=== PATIENT | male | born 1975 | race African-American/Black ===

== ENCOUNTER 2019-04-13 08:44 | Inpatient (IN) | payer MEDICAID ==
[2019-04-13] VITALS (10 sets, daily range): BP systolic 94–159; BP diastolic 78–95
[~2019-04-13] VITALS: Ht 165.1 cm; Wt 125.6 kg
--- NOTE | 2019-04-13 09:44 | NUR ---
FSBS 246
--- NOTE | 2019-04-13 09:51 | NUR ---
TO CT WITH TECH, AWAKE, CONTIUES TO BE NON VERBAL STARING A BLANK STARE.
[2019-04-13 09:55] LABS: CALC OSMOLALITY 282 mosm/kg (275-300); CALCIUM 9.4 mg/dL (8.5-10.1); CHLORIDE - SERUM 96 mmol/L (98-107); CREATININE - SERUM 2.3 mg/dL (0.6-1.3); GLUCOSE 264 mg/dL (74-106); POTASSIUM - SERUM 4.9 mmol/L (3.5-5.1); SODIUM 137 mmol/L (136-145); UREA NITROGEN 13 mg/dL (7-18); eGFR NON AFRICAN AMERICAN 33 mL/min (90-120)
[2019-04-13 09:59] LABS: APTT 31.8 SECONDS (22.8-39.4); INR 0.96 (0.85-1.17); PROTIME 12.8 SECONDS (11.6-15.0)
[2019-04-13 10:08] LABS: ALBUMIN 3.8 g/dL (3.4-5.0); ALKALINE PHOSPHATASE 127 U/L (46-116); ALT (SGPT) 16 U/L (10-68); BILIRUBIN - TOTAL 0.52 mg/dL (0.2-1.3); CREATINE KINASE 110 UL (21-232); MAGNESIUM - SERUM 1.9 mg/dL (1.8-2.4); PROTEIN - SERUM 8.5 g/dL (6.4-8.2); THYROID STIMULATING HORMONE 0.43 uIU/mL (0.36-3.74); TROPONIN-I < 0.017 ng/mL (0.000-0.060)
[2019-04-13 10:22] LABS: BASOPHILS 0.3 % (0-2); EOSINOPHILS 0 % (0-7); HEMATOCRIT 62.9 % (42.0-54.0); HEMOGLOBIN 20.6 g/dL (13.5-17.5); IMMATURE GRANULOCYTES 0.5 % (0-5); LYMPHOCYTES 37.6 % (15-50); MCH 29.4 pg (26.0-34.0); MCHC 32.8 g/dL (31.0-37.0); MCV 89.9 fL (80.0-100.0); MEAN PLATELET VOLUME 9.6 fL (7.4-10.4); MONOCYTES 6.3 % (2-11); NEUTROPHILS 55.3 % (40-80); PLATELET COUNT 198 10x3/uL (130-400); RDW 15.8 % (11.5-14.5); WBC 3.8 10x3/uL (4.8-10.8)
--- NOTE | 2019-04-13 11:59 | NUR ---
PT PULLING AT LINES, PULLING OFF MONITORS, CONTINUES TO JUST STARE NON VERBAL, BILATERAL WRIST RESTRAINTS PLACED PER DR LESLIE JACK.
[2019-04-13 12:04] LABS: UDS - AMPHET NEGATIVE QUAL (NEGATIVE); UDS - BARB NEGATIVE QUAL (NEGATIVE); UDS - BENZO NEGATIVE QUAL (NEGATIVE); UDS - COCAINE NEGATIVE QUAL (NEGATIVE); UDS - OPIATE NEGATIVE QUAL (NEGATIVE); UDS - PCP NEGATIVE QUAL (NEGATIVE); UDS - THC NEGATIVE QUAL (NEGATIVE)
[2019-04-13 12:36] LABS: APPEARANCE HAZY (CLEAR); COLOR YELLOW (YELLOW); NITRITE NEGATIVE (NEGATIVE)
[2019-04-13 12:37] LABS: BACTERIA FEW /hpf (NEGATIVE); BILIRUBIN NEGATIVE (NEGATIVE); EPITHELIAL CELLS 0-5 /hpf (0-5); GLUCOSE 1000 mg/dL (NEGATIVE); KETONE LARGE mg/dL (NEGATIVE); PROTEIN 1+ mg/dL (NEGATIVE); RED CELLS - URINE 0-5 /hpf (0-5); UROBILINOGEN NORMAL (NORMAL); WHITE CELLS - URINE RARE /hpf (NEGATIVE)
[2019-04-13 12:38] LABS: MUCUS <1+ /lpf (NONE SEEN)
--- NOTE | 2019-04-13 13:10 | NUR ---
O2 SAT IN 80'S, 100% NON REBREATHER PLACED, O2 SAT UP TO 100%, RESP HERE DOING ABGS, DR NELSON AWARE, CON'T TO MONITOR.
--- NOTE | 2019-04-13 15:35 | NUR ---
PT ARRIVED TO ICU FROM ER. PATIENT PLACED ON BIPAP AT 50% VSS. PT KEEPS RIPPING OFF BIPAP EVEN WITH CIERRA WRIST RESTRAINTS INTACT. PRN ATIVAN GIVEN. WILL CONT TO FOLLOW POC
--- NOTE | 2019-04-13 16:00 | NUR ---
16 FR MOORE CATHETER INSERTED VIA STERILE TECHNIQUE. PT TOLERATED WELL, STAT LOCK IN PLACE. VSS AND WNL. BED ALARM ON. BIPAP ON. WILL CONT TO FOLLOW POC
--- NOTE | 2019-04-13 16:04 | NUR ---
patient combative non cooperative, unable to answer questions no family available to answer questions.
--- NOTE | 2019-04-13 18:23 | NUR ---
PT RESTING IN BED, VSS AND WNL. BIPAP IN PLACE. BED ALARM ON. WILL CONT TO FOLLOW POC
[2019-04-13 18:46] LABS: KETONE - SERUM SMALL mg/dL (NEGATIVE)
--- NOTE | 2019-04-13 19:00 | NUR ---
IN BED RESTING WITH EYES CLOSED. BIPAP ON PER ORDERS. IV TO RIGHT AC INFUSING VIA PUMP PER ORDERS. RESP ARE EVEN AND UNLABORED. RESTRAINTS STILL INITIATED. WILL NOTE ANY CHANGE. NO S/S OF ANY ACUTE DISTRESS AT THIS TIME.
--- NOTE | 2019-04-13 20:59 | NUR ---
ATTEMPTING TO SIT UP IN BED AND APPEARING AGITATED. EYES ARE OPEN BUT UNABLE TO RESPOND APPROPRIATELY TO VERBAL CUES. UNABLE TO FOLLOW DIRECTIONS. PULLING AGAINST RESTRAINTS. ATIVAN GIVEN PER ORDERS. WILL NOTE CHANGE.
--- NOTE | 2019-04-13 23:00 | NUR ---
RESTING COMFORTABLY AT THIS TIME. WRIST RESTRAINTS CONTINUED. FOLLOWING PROTOCOL AND PROCEDURE REGARDING. MOORE CARE PROVIDED. NO S/S OF ANY ACUTE DISTRESS NOTED. WILL NOTE ANY CHANGE.
--- NOTE | 2019-04-13 23:34 | NUR ---
THRASHING IN BED AT THIS TIME. SHOWS S/S OF AGITATION, UNABLE TO CALM OR REORIENT. UNABLE TO FOLLOW ANY COMMAND. EYES ARE SPONTANEOUSLY OPENING, BUT UNABLE TO TRACK THIS NURSE. NO VERBAL ATTEMPT MADE BY PT AT THIS TIME. ATIVAN GIVEN PER ORDERS.
[2019-04-14] VITALS (24 sets, daily range): BP systolic 89–155; BP diastolic 65–118; Ht 165.1 cm; Wt 125.6 kg
--- NOTE | 2019-04-14 01:00 | NUR ---
RESTING QUFLORENCETY AT THIS TIME. WILL NOTE CHANGE. VSS.
--- NOTE | 2019-04-14 02:04 | NUR ---
RESTLESS IN BED, ATTEMPTING TO THRASH ABOUT AND APPEARS TO BE TRYING TO SIT UP, UNABLE TO FOLLOW COMMANDS, DOES NOT APPROPRIATELY RESPOND TO VERBAL OR PHYSICAL PROMPTS, EYES ARE OPEN PUPIL ARE SLUGGISH TO REACT. UNABLE TO TRACK NURSE. ATIVAN GIVEN PER ORDERS TO HELP SETTLE AND REDIRECT PT.
--- NOTE | 2019-04-14 03:00 | NUR ---
RESTING QUIETLY AT THIS TIME. PREVIOUS MEDICINE DEEMED EFFECTIVE.
--- NOTE | 2019-04-14 05:00 | NUR ---
IN BED WITH NO S/S OF ANY ACUTE DISTRESS AT THIS TIME. VSS. RESTRAINTS CONTINUED. UNABLE TO MAKE NEEDS KNOWN, UNABLE TO COMMUNICATE AT THIS TIME. WILL CONTINUE TO OBSERVE.
[2019-04-14 05:03] LABS: BASOPHILS 0.2 % (0-2); EOSINOPHILS 0 % (0-7); HEMATOCRIT 57.2 % (42.0-54.0); HEMOGLOBIN 18.5 g/dL (13.5-17.5); IMMATURE GRANULOCYTES 0.5 % (0-5); LYMPHOCYTES 32.3 % (15-50); MCH 29.3 pg (26.0-34.0); MCHC 32.3 g/dL (31.0-37.0); MCV 90.6 fL (80.0-100.0); MEAN PLATELET VOLUME 8.6 fL (7.4-10.4); MONOCYTES 7.7 % (2-11); NEUTROPHILS 59.3 % (40-80); PLATELET COUNT 181 10x3/uL (130-400); RBC 6.31 10x6/uL (4.20-6.10); RDW 16.2 % (11.5-14.5); WBC 4.4 10x3/uL (4.8-10.8)
[2019-04-14 05:44] LABS: ALBUMIN 3.1 g/dL (3.4-5.0); BILIRUBIN - TOTAL 0.46 mg/dL (0.2-1.3); CALCIUM 8.7 mg/dL (8.5-10.1); CARBON DIOXIDE 18.6 mmol/L (21.0-32.0); CREATININE - SERUM 2.3 mg/dL (0.6-1.3); MAGNESIUM - SERUM 1.9 mg/dL (1.8-2.4); PHOSPHOROUS 2.7 mg/dL (2.5-4.9); POTASSIUM - SERUM 4.6 mmol/L (3.5-5.1); PROTEIN - SERUM 7.5 g/dL (6.4-8.2); T4 THYROXIN - FREE 1.12 ng/dL (0.76-1.46); THYROID STIMULATING HORMONE 0.33 uIU/mL (0.36-3.74)
--- NOTE | 2019-04-14 06:17 | NUR ---
S/S OF AGITATION. THRASHING IN BED. ATTEMPTING TO GRAB AT LINES. UNABLE TO FOLLOW SIMPLE COMMANDS. WILL CONTINUE TO OBSERVE.
--- NOTE | 2019-04-14 07:00 | NUR ---
REPORT RECEIVED. ASSESSMENT COMPLETE PER FLOW SHEET. VSS PT SLEEPING COMFORTABLY WILL CONTINUE TO MONITOR
--- NOTE | 2019-04-14 09:00 | NUR ---
DR ODOM AT BEDSIDE GIVEN UDPATE. NEW ORDERS RECEIVED
--- NOTE | 2019-04-14 11:00 | NUR ---
REASSESSMENT COMPLETE PER FLOW SHEET. VSS. NO NEW CHANGES PT RESTING COMFORTABLY WILL CONTINUE TO MONITOR
--- NOTE | 2019-04-14 13:15 | NUR ---
DR QUIGLEY AT BEDSIDE NEW ORDERS RECIEVED
[2019-04-14 13:27] LABS: ANION GAP 30.3 mmol/L (8-16); CALCIUM 8.7 mg/dL (8.5-10.1); CARBON DIOXIDE 14.4 mmol/L (21.0-32.0); CREATININE - SERUM 1.9 mg/dL (0.6-1.3); POTASSIUM - SERUM 4.7 mmol/L (3.5-5.1)
--- NOTE | 2019-04-14 14:09 | NUR ---
FAMILY AT BEDSIDE. GIVEN UPDATE. JUANI WITH CASE MANAGEMENT NOTIFIED
--- NOTE | 2019-04-14 15:50 | NUR ---
NURSE ENTERED ROOM PT O2 SAT 88% RR 28 PT USING ACCESSORY MUSCLES TO BREATH AT THIS TIME, AUDIBLE NOISES FROM THROAT NOTED NT AND ORAL SUCTION ADM PT UNABLE TO SWALLOW OWN SECRETIONS AT THIS TIME GCS OF 5. HR 155. DR ODOM PAGEDania GIVEN UPDATE. T ORDERS TO CALL ANESTHESIA TO INTUBATE TO MAINTAIN AIRWAY AT THIS TIME.
--- NOTE | 2019-04-14 16:10 | NUR ---
ANESTHESIA AT BEDSIDE. GIVEN UDPATE. PT INTUBATED AT THIS TIME
[2019-04-14 18:11] LABS: ANION GAP 26.6 mmol/L (8-16); CALCIUM 8.9 mg/dL (8.5-10.1); CARBON DIOXIDE 16.7 mmol/L (21.0-32.0); CREATININE - SERUM 2.1 mg/dL (0.6-1.3); POTASSIUM - SERUM 4.3 mmol/L (3.5-5.1)
--- NOTE | 2019-04-14 19:00 | NUR ---
REPORT RECEIVED. PT SEDATED ON VENT, ETT AT LIP LINE MID, SECURED. SOFT WRIST RESTRAINTS TO BOTH WRISTS. PIV IN RT AC INFUSING, SEE IV FLOWSHEET. ASSESSMENT COMPLETE, SEE FLOWSHEET. NO ACUTE DISTRESS NOTED AT THIS TIME. WILL CONTINUE TO MONITOR.
--- NOTE | 2019-04-14 20:12 | MORECARE ---
CASE MANAGEMENT DISCHARGE SUMMARY PATIENT: RUPERT SAAB UNIT: [id number] ADM DATE: 04/13/19 AGE: 43 : [birth year] SEX: M ROOM/BED: D.2308 AUTHOR: SHAKEEL MATTHEWS PHYSICIAN: REFERRING PHYSICIAN: ALEM SUMMERS MD DATE OF SERVICE: 04/14/19 Discharge Plan Patient Name: RUPERT SAAB Facility: [facility]:[place] : 1975 Planned Disposition: Anticipated Discharge Date: Discharge Date: Expected LOS: Initial Reviewer: [email or web address] Initial Review Date: 04/14/2019 Generated: 04/14/19 9:12 pm Patient Name: RUPERT SAAB Page [id number] at 2011 All edits/amendments must be made on the electronic document DICTATION DATE: 04/14/192011 PLATE FURNACE OPERATOR: SUKHWINDER 04/14/192011 RPT#: [id number] DC DATE: STATUS: ADM IN [facility] [address] [place] [address] END OF REPORT
--- NOTE | 2019-04-14 20:19 | MORECARE ---
CASE MANAGEMENT DISCHARGE SUMMARY PATIENT: RUPERT SAAB UNIT: [id number] ADM DATE: 04/13/19 AGE: 43 : 79 SEX: M ROOM/BED: D.2308 AUTHOR: CASSIE,DOC PHYSICIAN: REFERRING PHYSICIAN: ALEM SUMMERS MD DATE OF SERVICE: 04/14/19 Discharge Plan Patient Name: RUPERT SAAB Facility: [facility]:[place] : 1975 Planned Disposition: Anticipated Discharge Date: Discharge Date: Expected LOS: Initial Reviewer: [email or web address] Initial Review Date: 04/14/2019 Generated: 04/14/19 9:18 pm Comments DCP- Discharge Planning Updated by [email or web address]: Yola Ramirez on 04/14/19 7:[address] Patient Name: RUPERT SAAB Admission Status: ER Accout number: [id number] Admission Date: 04-13-2019 : 1975 Admission Diagnosis: Attending: JATIN Current LOS: 1 Anticipated DC Date: Planned Disposition: Primary Insurance: MEDICAID [place] Discharge Planning Comments: CM met with patient's uncle at bedside after explaining CM role and obtaining verbal consent. Patient is currently on BiPap and not responding well. Patient lives at home alone where he is independent with his care and plans to return there upon discharge. CM discussed availability / needs of home health and medical equipment. Unknown discharge needs at this time. CM will continue to follow and assist as needed with discharge planning / needs. Engineering Program Analyst: Yola Ramirez DCPIA - Discharge Planning Initial Assessment Updated by [email or web address]: Yola Ramirez on 04/14/19 8:14 pm * Is the patient Alert and Oriented? Yes * How many steps to enter\exit or inside your home? 1-2 * PCP Joshua * Pharmacy [facility] * Preadmission Environment Home Alone * ADLs Independent * Equipment None * Verbal permission to speak to the caregivers and representatives has been obtained from the patient. N/A * Community resources currently utilized None * Additional services required to return to the preadmission environment? No * Can the patient safely return to the preadmission environment? Yes * Has this patient been hospitalized within the prior 30 days at any hospital? No Last DP export: 04/14/19 7:12 pm Patient Name: RUPERT SAAB Page [id number] at 2019 All edits/amendments must be made on the electronic document DICTATION DATE: 04/14/192017 LIVE AMMUNITION INSPECTOR: SUKHWINDER 04/14/192017 RPT#: [id number] DC DATE: STATUS: ADM IN [facility] [address] [place] [address] END OF REPORT
--- NOTE | 2019-04-14 21:00 | NUR ---
PT SEDATED ON VENT, AROUSES TO PAINFUL STIMULI. REPOSITIONED FOR COMFORT.
--- NOTE | 2019-04-14 23:00 | NUR ---
PT SEDATED ON VENT, NO ACUTE DISTRESS NOTED. WILL CONTINUE TO MONITOR.
[2019-04-15] VITALS (24 sets, daily range): BP systolic 88–138; BP diastolic 62–98
--- NOTE | 2019-04-15 01:00 | NUR ---
PT SEDATED ON VENT. NO ACUTE DISTRESS NOTED.
--- NOTE | 2019-04-15 03:00 | NUR ---
PT SEDATED ON VENT, REPOSITIONED FOR COMFORT.
--- NOTE | 2019-04-15 04:14 | NUR ---
DECREASED FI02 TO 50% PER ABG
--- NOTE | 2019-04-15 05:00 | NUR ---
PT SEDATED ON VENT, SLIGHTLY AGITATED. WILL CONTINUE TO MONITOR.
--- NOTE | 2019-04-15 07:00 | NUR ---
PT REPORT RECEIVED FROM SCIENTIFIC SPECIALIST NURSE. NO VISIBLE SIGNS OF DISTRESS NOTED. SHIFT ASSESSMENT COMPLETED. PT ON THE VENT AND SEDATED. WILL CONTINUE TO MONITOR
--- NOTE | 2019-04-15 08:58 | NUR ---
PER DR ODOM.. START PATIENT ON INSULIN DRIP FOR DKA WITH 1/2 D5 @ 100
--- NOTE | 2019-04-15 09:06 | NUR ---
Nutrition follow-up: Pt now intubated, sedated with propofol NPO 2/2 insulin drip at this time Labs reviewed Wt: 265# Will need to start nutrition support when off insulin drip if pt remains intubated. RDN following.
[2019-04-15 10:23] LABS: BASOPHILS 1.1 % (0-2); EOSINOPHILS 0.3 % (0-7); HEMATOCRIT 54.6 % (42.0-54.0); HEMOGLOBIN 17.8 g/dL (13.5-17.5); IMMATURE GRANULOCYTES 3.3 % (0-5); LYMPHOCYTES 30.6 % (15-50); MCH 29.2 pg (26.0-34.0); MCHC 32.6 g/dL (31.0-37.0); MCV 89.7 fL (80.0-100.0); MEAN PLATELET VOLUME 8.9 fL (7.4-10.4); MONOCYTES 10.8 % (2-11); NEUTROPHILS 53.9 % (40-80); PLATELET COUNT 153 10x3/uL (130-400); RBC 6.09 10x6/uL (4.20-6.10)
[2019-04-15 10:34] LABS: WBC 6.3 10x3/uL (4.8-10.8)
[2019-04-15 10:57] LABS: ALBUMIN 2.8 g/dL (3.4-5.0); ANION GAP 30.2 mmol/L (8-16); BILIRUBIN - TOTAL 0.63 mg/dL (0.2-1.3); CALCIUM 8.6 mg/dL (8.5-10.1); CARBON DIOXIDE 13.8 mmol/L (21.0-32.0); CREATININE - SERUM 1.6 mg/dL (0.6-1.3); MAGNESIUM - SERUM 2.2 mg/dL (1.8-2.4); PROTEIN - SERUM 6.6 g/dL (6.4-8.2)
--- NOTE | 2019-04-15 11:00 | NUR ---
PT RESTING IN BED. NO VISIBLE SIGNS OF DISTRESS NOTED. LAB AT BEDSIDE. REASSESSMENT COMPLETED. WILL CONTINUE TO MONITOR
--- NOTE | 2019-04-15 13:00 | NUR ---
PT RESTING IN BED. NO VISIBLE SIGNS OF DISTRESS NOTED. PT STILL ON SEDATION. WILL CONTINUE TO MONITOR
--- NOTE | 2019-04-15 15:00 | NUR ---
PT RESTING IN BED. SEDATED AND INTUBATED. FAMILY AT BEDSIDE. UPDATE GIVEN. REASSESSMENT COMPLETED. WILL CONTINUE TO MONITOR
[2019-04-15 16:07] LABS: CALCIUM 8.7 mg/dL (8.5-10.1); CREATININE - SERUM 2.1 mg/dL (0.6-1.3)
[2019-04-15 16:08] LABS: CARBON DIOXIDE 19.9 mmol/L (21.0-32.0); MAGNESIUM - SERUM 2.1 mg/dL (1.8-2.4); POTASSIUM - SERUM 3.9 mmol/L (3.5-5.1)
--- NOTE | 2019-04-15 17:00 | NUR ---
PT RESTING IN BED. NO ACUTE SIGNS OF DISTRESS NOTED. WILL CONTINUE TO MONITOR
--- NOTE | 2019-04-15 19:00 | NUR ---
REPORT RECEIVED INITIAL ASSESSMENT COMPLETE. PT SEDATED BUT AWAKE ATTEMPTING TO SIT UP IN BED. SEE IV FLOWSHEET FOR DRIPS. ORALLY INTUBATED SEE RESP. S1S2 CM READING SR WITHOUT ECTOPY . BED LOW POSITION SIDE RAIL UP X 3 FOR SAFETY. VSS WILL CONTINUE TO MONITOR.
--- NOTE | 2019-04-15 21:42 | NUR ---
PT ATTEMPTING TO SIT UP IN BED MEDICATED WITH ATVAN PER PRN EMAR
--- NOTE | 2019-04-15 22:15 | NUR ---
ATIVAN EFFECTIVE PT BLOOD PRESSURE DID DROP MINIMALLY BUT TRENDING BACK UP VSS WILL CONTINUE TO MONITOR
--- NOTE | 2019-04-15 23:00 | NUR ---
REASSESSMENT MADE NO CHANGES CPOC REPOSITIONED
[2019-04-15 23:07] LABS: ANION GAP 22.5 mmol/L (8-16); CALCIUM 9.4 mg/dL (8.5-10.1); CARBON DIOXIDE 20.7 mmol/L (21.0-32.0); CREATININE - SERUM 1.6 mg/dL (0.6-1.3); MAGNESIUM - SERUM 2.1 mg/dL (1.8-2.4); POTASSIUM - SERUM 4.2 mmol/L (3.5-5.1)
[2019-04-16] VITALS (24 sets, daily range): BP systolic 94–134; BP diastolic 45–92
[2019-04-16 04:47] LABS: BASOPHILS 0 % (0-2); EOSINOPHILS 0 % (0-7); HEMATOCRIT 53.7 % (42.0-54.0); IMMATURE GRANULOCYTES 0.3 % (0-5); LYMPHOCYTES 23.7 % (15-50); MCH 29.5 pg (26.0-34.0); MCHC 33.5 g/dL (31.0-37.0); MCV 87.9 fL (80.0-100.0); MEAN PLATELET VOLUME 8.8 fL (7.4-10.4); PLATELET COUNT 125 10x3/uL (130-400); RBC 6.11 10x6/uL (4.20-6.10); RDW 16.8 % (11.5-14.5)
[2019-04-16 05:01] LABS: ALBUMIN 2.7 g/dL (3.4-5.0); BILIRUBIN - TOTAL 0.49 mg/dL (0.2-1.3); CALCIUM 9.1 mg/dL (8.5-10.1); CARBON DIOXIDE 24.9 mmol/L (21.0-32.0); CREATININE - SERUM 1.9 mg/dL (0.6-1.3); MAGNESIUM - SERUM 2.1 mg/dL (1.8-2.4)
[2019-04-16 05:05] LABS: ANION GAP 15.1 mmol/L (8-16)
--- NOTE | 2019-04-16 07:00 | NUR ---
PT REPORT RECEIVED FROM LEAD ASSEMBLER NURSE. SHIFT ASSESSMENT COMPLETED. NO ACUTE SIGNS OF DISTRESS NOTED. WILL CONTINUE TO MONITOR
--- NOTE | 2019-04-16 09:00 | NUR ---
PT RESTING IN BED COMFORTABLY. STARTED OG TUBE ON PATIENT. TOLERATED WELL. PLACEMENT VERIFIED BY AUSCULTATION BY ADAMA ZEPEDA AND ADAMA METZ.
[2019-04-16 10:00] LABS: ANION GAP 14.4 mmol/L (8-16); CALCIUM 9.1 mg/dL (8.5-10.1); CARBON DIOXIDE 26.5 mmol/L (21.0-32.0); CREATININE - SERUM 1.9 mg/dL (0.6-1.3)
[2019-04-16 10:07] LABS: POTASSIUM - SERUM 2.9 mmol/L (3.5-5.1)
--- NOTE | 2019-04-16 11:34 | NUR ---
DR VILLALTA AT BEDSIDE. UPDATE GIVEN. ORDERS RECEIVED TO START PT ON TUBE FEEDINGS. PULMOCARE AT 10CC AN HOUR.
--- NOTE | 2019-04-16 13:00 | NUR ---
PT RESTING IN BED COMFORTABLY. NO ACUTE SIGNS OF DISTRESS NOTED. WILL CONTINUE TO MONITOR
--- NOTE | 2019-04-16 15:07 | NUR ---
DR HERNANDEZ AT BEDSIDE PLACING A CENTRAL LINE. ASSESSMENT COMPLETED. NO ACUTE SIGNS OF DISTRESS NOTED. WILL CONTINUE TO MONITOR
--- NOTE | 2019-04-16 17:29 | NUR ---
ECHO AT BEDSIDE LOOKING AT LEFT ARM. PT RESTING IN BED SEDATED. WILL CONTINUE TO MONITOR
[2019-04-16 18:28] LABS: ANION GAP 10.8 mmol/L (8-16); CALCIUM 8.7 mg/dL (8.5-10.1); CARBON DIOXIDE 27.4 mmol/L (21.0-32.0); MAGNESIUM - SERUM 1.8 mg/dL (1.8-2.4); POTASSIUM - SERUM 3.2 mmol/L (3.5-5.1)
--- NOTE | 2019-04-16 19:20 | NUR ---
SHIFT ASSESSMENT COMPLETED, PATIENT INTUBATED AND SEDATED BILAT SOFT WRIST RESTRAINTS ON AT THIS TIME. RESTRAINTS REMOVED TO CHECK SKIN INTEGRITY, SKIN WNL. PATIENT REPOSITIONED FOR COMFORT AND SKIN INTEGRITY, ORAL CARE PERFORMED. VSS CPOC
--- NOTE | 2019-04-16 20:22 | NUR ---
UNABLE TO OBTAIN SUICIDE SCREENING AT THIS TIME DUE TO LOC STATUS
--- NOTE | 2019-04-16 23:20 | NUR ---
REASSESSMENT COMPLETED SEE FLOWSHEET
[2019-04-17] VITALS (24 sets, daily range): BP systolic 92–149; BP diastolic 50–115
--- NOTE | 2019-04-17 02:45 | NUR ---
PATIENT DESAT ALARM GOING OFF - UNABLE TO GET ACCURATE READING REPLACED SENSOR AND CHANGED POSITIONS STILL UNABLE TO OBTAIN ACCURATE READING. RT CALLED TO BEDSIDE, PATIENT READING 82% ON PORTABLE PULSE OXIMETER.
--- NOTE | 2019-04-17 03:34 | NUR ---
REASSESSMENT COMPLETED PT SPO2 94% - VENT SETTINGS NOW AT 60% TITRATED BY RT EARLIER THIS SHIFT. SEE FLOWSHEET FOR FULL ASSESSMENT
[2019-04-17 06:44] LABS: ALBUMIN 2.3 g/dL (3.4-5.0); ANION GAP 12.3 mmol/L (8-16); BILIRUBIN - TOTAL 0.45 mg/dL (0.2-1.3); CALCIUM 8.8 mg/dL (8.5-10.1); CARBON DIOXIDE 25.4 mmol/L (21.0-32.0); MAGNESIUM - SERUM 1.9 mg/dL (1.8-2.4); POTASSIUM - SERUM 3.7 mmol/L (3.5-5.1); PROTEIN - SERUM 6.2 g/dL (6.4-8.2)
[2019-04-17 06:51] LABS: BASOPHILS 0.2 % (0-2); EOSINOPHILS 0.3 % (0-7); HEMATOCRIT 48.6 % (42.0-54.0); HEMOGLOBIN 15.8 g/dL (13.5-17.5); IMMATURE GRANULOCYTES 0.3 % (0-5); LYMPHOCYTES 25.5 % (15-50); MCH 28.8 pg (26.0-34.0); MCHC 32.5 g/dL (31.0-37.0); MCV 88.7 fL (80.0-100.0); MEAN PLATELET VOLUME 9.1 fL (7.4-10.4); MONOCYTES 12.2 % (2-11); NEUTROPHILS 61.5 % (40-80); PLATELET COUNT 129 10x3/uL (130-400); RBC 5.48 10x6/uL (4.20-6.10); WBC 6.6 10x3/uL (4.8-10.8)
--- NOTE | 2019-04-17 07:00 | NUR ---
BEDSIDE REPORT RECEIVED. SHIFT ASSESSMENT COMPLETED PER FLOWSHEET, SEE FLOWSHEET FOR INFORMATION. TARIQ GALAN CALLED ABOUT INSULIN DRIP, NEW ORDERS RECEIVED. VSS. WILL CONT TO MONITOR.
--- NOTE | 2019-04-17 09:00 | NUR ---
REPOSITIONED PER COMFORT. ORAL AND INLINE SUCTIONED. NO ACUTE NEEDS OR DISTRESS NOTED AT THIS TIME. WILL CONT TO MONITOR.
--- NOTE | 2019-04-17 11:00 | NUR ---
REASSESSMENT COMPLETED PER FLOWSHEET, SEE FLOWSHEET FOR INFORMATION. REPOSITIONED PT FOR COMFORT. WILL CONT TO MONITOR.
--- NOTE | 2019-04-17 13:00 | NUR ---
PT TURNED PER COMFORT. WILL CONT TO MONITOR.
--- NOTE | 2019-04-17 13:20 | NUR ---
FAMILY CALLED, PASSWORD RECEIVED. UPDATE GIVEN. WILL CONT TO MONITOR.
--- NOTE | 2019-04-17 15:00 | NUR ---
TURNED PER COMFORT. REASSESSMENT COMPLETED PER FLOWSHEET, SEE FLOWSHEET FOR INFORMATION. ORAL AND INLINE SUCTIONED, THICK WHITE SECRETIONS. NO ACUTE NEEDS OR DISTRESS NOTED AT THIS TIME. VSS. WILL CONT TO MONITOR.
--- NOTE | 2019-04-17 17:00 | NUR ---
TURNED PT PER COMFORT. FAMILY AT BEDSIDE, UPDATE GIVEN. NO ACUTE NEEDS OR DISTRESS NOTED AT THIS TIME. VSS. WILL CONT TO MONITOR.
--- NOTE | 2019-04-17 19:13 | NUR ---
SHIFT ASSESSMENT COMPLETED SEE FLOWSHEET FOR FULL ASSESSMENT DETAIL, PATIENT INTUBATED AND SEDATED, EYES OPENING SPONTANEOUSLY, PULSE OX LOW - REPOSITIONED AT THIS TIME. ORAL CARE COMPLETED. VSS CPOC
--- NOTE | 2019-04-17 23:16 | NUR ---
REASSESSMENT COMPLETED SEE FLOWSHEET
[2019-04-18] VITALS (30 sets, daily range): BP systolic 104–182; BP diastolic 80–125
--- NOTE | 2019-04-18 01:27 | NUR ---
PT RESTING COMFORTABLY - VSS CPOC
--- NOTE | 2019-04-18 03:00 | NUR ---
REASSESSMENT COMPLETED SEE FLOWSHEET
--- NOTE | 2019-04-18 05:30 | NUR ---
CHG BATH COMPLETED AND FULL LINEN CHANGE PERFORMED. MOORE CARE COMPLETED, PATIENT TOLERATED WELL. VSS CPOC
[2019-04-18 05:49] LABS: BASOPHILS 0.2 % (0-2); EOSINOPHILS 0.2 % (0-7); HEMATOCRIT 44.2 % (42.0-54.0); HEMOGLOBIN 14.2 g/dL (13.5-17.5); LYMPHOCYTES 34.5 % (15-50); MCH 28.4 pg (26.0-34.0); MCHC 32.1 g/dL (31.0-37.0); MCV 88.4 fL (80.0-100.0); MEAN PLATELET VOLUME 9.4 fL (7.4-10.4); MONOCYTES 11.6 % (2-11); NEUTROPHILS 53.5 % (40-80); PLATELET COUNT 141 10x3/uL (130-400); RDW 16.7 % (11.5-14.5)
[2019-04-18 06:04] LABS: WBC 4.5 10x3/uL (4.8-10.8)
[2019-04-18 06:36] LABS: ALBUMIN 2.1 g/dL (3.4-5.0); ANION GAP 10.2 mmol/L (8-16); BILIRUBIN - TOTAL 0.43 mg/dL (0.2-1.3); CALCIUM 8.6 mg/dL (8.5-10.1); CREATININE - SERUM 1.5 mg/dL (0.6-1.3); MAGNESIUM - SERUM 1.6 mg/dL (1.8-2.4); POTASSIUM - SERUM 3.2 mmol/L (3.5-5.1); PROTEIN - SERUM 5.6 g/dL (6.4-8.2)
--- NOTE | 2019-04-18 07:00 | NUR ---
PT RESTING IN BED, VSS AND WNL. BED ALARM ON. ETT SECURED. MOORE CATHETER PRESENT DRAINING DARK URINE FREELY INTO BAG VIA GRAVITY. NO SIGNS OF DISTRESS NOTED. WILL CONT TO FOLLOW POC
--- NOTE | 2019-04-18 09:00 | NUR ---
PT RESTING IN BED, VSS AND WNL, ETT SECURED. PT REPOSITIONED. NO SIGNS OF DISTRESS NOTED, WILL CONT TO FOLLOW POC
--- NOTE | 2019-04-18 09:42 | NUR ---
Nutrition follow-up: Pt remains intubated Pulmocare started @ 10 ml/hr Labs reviewed Wt: 278# Ordered placed to slowly advance TF to goal rate of 55 ml/hr RDN following.
--- NOTE | 2019-04-18 10:08 | NUR ---
NO RESIDUAL FROM TF. INCREASED TF TO 20ML/HR ORDERED, HERE AND GAVE ORDER TO WEAN OFF PROPOFOL, START PRECIDEX, AND CHANGE CARDIZEM TO 5ML/HR.
--- NOTE | 2019-04-18 12:00 | NUR ---
PT RESTING IN BED, VSS AND WNL. BED ALARM ON, NO SIGNS OF DISTRESS NOTED. ETT SECURED. WILL CONT TO FOLLOW POC
--- NOTE | 2019-04-18 13:59 | NUR ---
PT REPOSITIONED. VSS AND WNL. BED ALARM ON. ETT SECURED. DENIES ANY NEEDS AT THIS TIME, WILL CONT TO FOLLOW POC
--- NOTE | 2019-04-18 16:00 | NUR ---
PT RESTING IN BED, VSS AND WNL. ETT SECURED. NO SIGNS OF DISTRESS NOTED. BED ALARM ON. WILL CONT TO FOLLOW POC
--- NOTE | 2019-04-18 18:24 | NUR ---
PT RESTING IN BED, VSS AND WNL. SITTER AT BEDSIDE, DENIES ANY NEEDS AT THIS TIME, WILL CONT TO FOLLOW POC
[2019-04-19] VITALS (26 sets, daily range): BP systolic 100–156; BP diastolic 84–126
--- NOTE | 2019-04-19 07:00 | NUR ---
PT RESTING IN BED, VSS. BED ALARM ON. ETT SECURED. NGT SECURED. MOORE CATHETER PRESENT DRAINING DARK URINE FREELY VIA GRAVITY WITH NO LOOPS NOTED. CIERRA WRIST RESTRAINTS NOTED. NO SIGNS OF DISTRESS NOTED AT THIS TIME, WILL CONT TO FOLLOW POC
[2019-04-19 07:13] LABS: BASOPHILS 0.2 % (0-2); EOSINOPHILS 0.5 % (0-7); HEMATOCRIT 45.3 % (42.0-54.0); HEMOGLOBIN 14.6 g/dL (13.5-17.5); IMMATURE GRANULOCYTES 0.2 % (0-5); LYMPHOCYTES 41.1 % (15-50); MCH 28.7 pg (26.0-34.0); MCHC 32.2 g/dL (31.0-37.0); MCV 89.2 fL (80.0-100.0); MEAN PLATELET VOLUME 9.1 fL (7.4-10.4); MONOCYTES 10.8 % (2-11); NEUTROPHILS 47.2 % (40-80); PLATELET COUNT 145 10x3/uL (130-400); RBC 5.08 10x6/uL (4.20-6.10); RDW 16.1 % (11.5-14.5)
[2019-04-19 07:17] LABS: WBC 5.9 10x3/uL (4.8-10.8)
[2019-04-19 07:49] LABS: ALBUMIN 1.9 g/dL (3.4-5.0); BILIRUBIN - TOTAL 0.39 mg/dL (0.2-1.3); CALCIUM 8.3 mg/dL (8.5-10.1); CARBON DIOXIDE 30.3 mmol/L (21.0-32.0); CREATININE - SERUM 1.3 mg/dL (0.6-1.3); POTASSIUM - SERUM 3.3 mmol/L (3.5-5.1); PROTEIN - SERUM 5.7 g/dL (6.4-8.2)
[2019-04-19 07:50] LABS: MAGNESIUM - SERUM 2.1 mg/dL (1.8-2.4)
--- NOTE | 2019-04-19 09:03 | NUR ---
CHG BATH GIVEN AND FULL LINEN CHANGE PROVIDED, PT REPOSITIONED. BED ALARM ON. VSS AND WNL. HERE AND ASKED RT TO PLACE PT ON CPAP TRIALS. TOLD NURSE TO STOP PROPOFOL NOW. WILL CONT TO FOLLOW POC
--- NOTE | 2019-04-19 09:24 | NUR ---
ASKED NURSE TO STOP CARDIZEM AND HOLD TF FOR NOW.
--- NOTE | 2019-04-19 11:23 | NUR ---
NOTIFIED OF ELEVATED BP. NEW ORDER RECIEVED FOR PRN HYDRALAZINE. WILL CONT TO FOLLOW POC
--- NOTE | 2019-04-19 11:30 | NUR ---
PT RESTING IN BED, VSS AND WNL. ETT SECURED. PT REPOSITIONED. NO SIGNS OF DISTRESS NOTED AT THIS TIME, WILL CONT TO FOLLOW POC
--- NOTE | 2019-04-19 13:30 | NUR ---
PT RESTING IN BED, VSS AND WNL. ETT SECURED. BED ALARM ON. NO SIGNS OF DISTRESS NOTED. WILL CONT TO FOLLOW POC
--- NOTE | 2019-04-19 14:05 | OP ---
PATIENT NAME: RUPERT SAAB MEDICAL RECORD: [id number] :[birth year] LOCATION:D.ICU D.2308 ADMISSION DATE:04/13/19 SURGEON: MARIAELENA HERNANDEZ MD DATE OF OPERATION: 04/16/2019 PREOPERATIVE DIAGNOSES: 1. Need for IV access. 2. Acute respiratory failure on the ventilator. 3. Acute kidney injury. 4. Bipolar disorder. 5. Schizophrenia. 6. Acute mental status changes with metabolic encephalopathy. POSTOPERATIVE DIAGNOSES: 1. Need for IV access. 2. Acute respiratory failure on the ventilator. 3. Acute kidney injury. 4. Bipolar disorder. 5. Schizophrenia. 6. Acute mental status changes with metabolic encephalopathy. PROCEDURE: Right subclavian vein triple-lumen central venous line placement. SURGEON: Mariaelena Hernandez MD REPORT OF PROCEDURE: The patient's right chest was prepped and draped in sterile fashion. A needle was used to cannulate the right subclavian vein and a guidewire was advanced with ease. Over this wire, a dilator was placed followed by the triple lumen catheter. The catheter aspirated nonpulsatile dark blood and flushed easily in all 3 ports. This was sutured into place with 3-0 Prolene and dressed appropriately. COMPLICATIONS: None. CONDITION: Fair. ANESTHESIA: General endotracheal. BLOOD LOSS: Minimal. Procedure done in the ICU at the bedside. TRANSINT:[id number] Voice Confirmation ID: [id number] DOCUMENT ID: [id number] MARIAELENA HERNANDEZ MD at 1405 CC: [id number] DICTATION DATE: 04/16/19 1524 CONSTRUCTION PROJECT ADMINISTRATOR: 04/16/19 1803 ADM IN [facility] [id number] [place] [address]
--- NOTE | 2019-04-19 15:30 | NUR ---
PT RESTING IN BED, VSS AND WNL. ETT SECURED. BED ALARM ON. NO SIGNS OF DISTRESS NOTED AT THIS TIME, WILL CONT TO FOLLOW POC
--- NOTE | 2019-04-19 16:28 | NUR ---
HERE, NOTIFIED OF ELEVATED BP. NEW ORDER RECIEVED FOR NORVASC. PER OK TO RESTART TF. BED ALARM ON. NO SIGNS OF DISTRESS NOTED AT THIS TIME, WILL CONT TO FOLLOW POC
[2019-04-20] VITALS (24 sets, daily range): BP systolic 107–143; BP diastolic 80–116
[2019-04-20 06:20] LABS: BASOPHILS 0.2 % (0-2); EOSINOPHILS 0.7 % (0-7); HEMATOCRIT 45.8 % (42.0-54.0); HEMOGLOBIN 14.6 g/dL (13.5-17.5); IMMATURE GRANULOCYTES 0.2 % (0-5); LYMPHOCYTES 40.6 % (15-50); MCH 28.4 pg (26.0-34.0); MCHC 31.9 g/dL (31.0-37.0); MCV 89.1 fL (80.0-100.0); MEAN PLATELET VOLUME 8.9 fL (7.4-10.4); MONOCYTES 10.5 % (2-11); NEUTROPHILS 47.8 % (40-80); PLATELET COUNT 138 10x3/uL (130-400); RBC 5.14 10x6/uL (4.20-6.10); RDW 15.8 % (11.5-14.5); WBC 5.8 10x3/uL (4.8-10.8)
--- NOTE | 2019-04-20 07:00 | NUR ---
AWAKES TO VERBAL STIMULI OBEYING COMMANDS, MOVES TOES ON REQUEST. BILATERAL HAND BUTTON DECORATING MACHINE OPERATOR EQUAL. ETT SECURE TO VENT. LARGE AMOUNT NASAL DARK YELLOW DRAINAGE ORAL SECRETIONS CLEAR AND DARK YELLOW. LARGE AMOUNT WHITE FROM ETT. RIGHT SUBCLAVAIN TRIPLE LUMEN CENTRAL LINE INFUSING WITH LR AT 125 ML HOUR. CENTRAL LINE DRESSING CHANGE DONE IN SUPPORT MANAGER. NO REDNESS OR DRAINAGE FROM SITE. PATIENT TOLERATED WELL. MOORE CATH DRAINING CLOUDY TARAH URINE. RIGHT NARES NG TUBE INFUSINGWITH PULMOCARE AT 40 ML HOUR. 20 ML RESIDUAL. SCD ON LOWER LEGS. MONITOR SR. HEAD OF BED ELEVATED 30 DEGREE.
[2019-04-20 07:06] LABS: CALC OSMOLALITY 294 mosm/kg (275-300); CALCIUM 8.3 mg/dL (8.5-10.1); CHLORIDE - SERUM 109 mmol/L (98-107); CREATININE - SERUM 1.1 mg/dL (0.6-1.3); GLUCOSE 229 mg/dL (74-106); MAGNESIUM - SERUM 1.8 mg/dL (1.8-2.4); POTASSIUM - SERUM 3.4 mmol/L (3.5-5.1); SODIUM 144 mmol/L (136-145); UREA NITROGEN 15 mg/dL (7-18); eGFR NON AFRICAN AMERICAN 78 mL/min (90-120)
--- NOTE | 2019-04-20 09:03 | NUR ---
Nutrition follow-up: Pt remains intubated; sedation off at this time and pt awake Pulmocare infusing @ 40 ml/hr with gradual increase to goal rate of 55 ml/hr Labs reviewed Wt: 278# CPAP trials have started 04/19 following.
--- NOTE | 2019-04-20 10:00 | NUR ---
TOLERATING CPAP TRAIL WELL. NO DISTRESS. RESP RATE BELOW 16, TV GREATER THAN 600. NO DISTRESS.
--- NOTE | 2019-04-20 11:18 | NUR ---
EXTUBATED NG TUBE PULLED. COUGHING ON REQUEST. PLACED ON BIPAP 14/8 [address] 40%. DR. ODMO HERE. TOLERATING WELL.
--- NOTE | 2019-04-20 13:00 | NUR ---
SIPS OF WATER TAKEN WITHOUT DIFFICULTY. NO CHOKING OR COUGHING. PULSE OX DID DROP AFTER BEING OFF BIPAP AT 4 LITER NS. DROPPED TO 85%
--- NOTE | 2019-04-20 14:37 | NUR ---
LARGE BROWN BM LIQUID AND SOLID. FOUL ODOR. XENIA CARE DONE.
--- NOTE | 2019-04-20 16:00 | NUR ---
RECEIVED FROM OUTPATIENTY SURGERY POSTOP LAP LUCINA WITH LIVER BX. SLEEPY, AWAKES WITH PHYSICAL STIMULATION ANSWERS QUESTIONS APPRIOPIATELY. OXYGEN MASK ON PATIENT . RESP THERAPY NOTIFIED OF PATIENT ADMIT, PLACED PATIENT ON [address] ODOM NOTIFIED OF CONSULT, STATES HE WILL SEE HER TOMORROW. REPS DEEP AND REGULAR . BAND AIDES X 4 ON ABD DRY AND INTACT. COMPLAINTS OF PAIN WHEN MOVING, THEN RETURNS TO SLEEP MONITOR ST. IV LEFT WRIST INFUSING WITH NS
[2019-04-21] VITALS (19 sets, daily range): BP systolic 124–152; BP diastolic 65–130
[2019-04-21 05:52] LABS: BASOPHILS 0.2 % (0-2); EOSINOPHILS 1.4 % (0-7); HEMATOCRIT 45.4 % (42.0-54.0); HEMOGLOBIN 14.3 g/dL (13.5-17.5); IMMATURE GRANULOCYTES 0.2 % (0-5); LYMPHOCYTES 41.9 % (15-50); MCH 28.4 pg (26.0-34.0); MCHC 31.5 g/dL (31.0-37.0); MCV 90.1 fL (80.0-100.0); MEAN PLATELET VOLUME 8.9 fL (7.4-10.4); MONOCYTES 15.3 % (2-11); PLATELET COUNT 152 10x3/uL (130-400); RBC 5.04 10x6/uL (4.20-6.10); RDW 15.5 % (11.5-14.5); WBC 6.3 10x3/uL (4.8-10.8)
[2019-04-21 06:15] LABS: CALCIUM 8.1 mg/dL (8.5-10.1); CARBON DIOXIDE 31.5 mmol/L (21.0-32.0); CHLORIDE - SERUM 107 mmol/L (98-107); MAGNESIUM - SERUM 1.6 mg/dL (1.8-2.4); PHOSPHOROUS 2.9 mg/dL (2.5-4.9); SODIUM 144 mmol/L (136-145)
[2019-04-21 06:22] LABS: CALC OSMOLALITY 286 mosm/kg (275-300); CREATININE - SERUM 0.8 mg/dL (0.6-1.3); GLUCOSE 114 mg/dL (74-106); UREA NITROGEN 10 mg/dL (7-18); eGFR NON AFRICAN AMERICAN > 90 mL/min (90-120)
[2019-04-21 06:23] LABS: POTASSIUM - SERUM 2.8 mmol/L (3.5-5.1)
--- NOTE | 2019-04-21 07:00 | NUR ---
PT RESTING IN BED, VSS AND WNL, ANSWERS ALL QUESTIONS. FOLLOWING COMMANDS. MOORE CATHTER DRAINING DARK URINE FREELY VIA GRAVITY. BED ALARM ON. NO SIGNS OF DISTRESS NOTED, CALL LIGHT WITHIN REACH, WILL CONT TO FOLLOW POC
--- NOTE | 2019-04-21 07:50 | NUR ---
PT REQUEST TO USE BEDPAN. ASSISTED PT ONTO BEDPAN
--- NOTE | 2019-04-21 08:00 | NUR ---
NURSE WENT TO CHECK ON PT. BED DINERO WAS THROWN INTO FLOOR WITH BM IN BEDPAN AND SCATTERED ACROSS FLOOR AND ALL OVER PT. CHG BATH PROVIDED. FULL LINEN CHANGE PROVIDED. WILL CONT TO FOLLOW POC
--- NOTE | 2019-04-21 10:25 | NUR ---
CALLED NURSE AND GAVE ORDER TO TRANSFER PT TO FLOOR AND TO OBTAIN SWALLOW STUDY
[2019-04-21] MEDS ORDERED: INVEGA SUST (10:26)
--- NOTE | 2019-04-21 10:29 | NUR ---
SPOKE WITH PT FAMILY, PT GOES TO [facility] IN [place] DAILY. HE USES THE PHARMACY THERE. FAMILY WILL BRING THE NAME OF THE PHARMACY WHEN THEY ARRIVE TODAY
--- NOTE | 2019-04-21 11:19 | NUR ---
PT WAS ON 3L NC AND O2 SAT STAYING AT 95%, PT DRIFTED OF TO SLEEP AND PT O2 SAT DROPPED DOWN TO 75%. BIPAP PLACED BACK ON PT AND O2 CAME UP TO 98%. VSS. NO SIGNS OF DISTRESS NOTED. BED ALARM ON. WILL CONT TO FOLLOW POC
--- NOTE | 2019-04-21 17:44 | NUR ---
RESTING IN BED. DENIES NEEDS. WILL CONTINUE TO MONITOR.
--- NOTE | 2019-04-21 23:42 | NUR ---
PATIENT IN BED RESTING WITH EYES CLOSED AND BIPAP ON. NO ACUTE S/S OF DISTRESS. NO COMPLAINTS AT THIS TIME. PATIENT HAS IV TO R SUBCLAVIAN LR @ 75 ML/HR. IV IS PATENT WITHOUT REDNESS, SWELLING, OR TENDERNESS. PATIENT WEARS 3L O2 WHEN NOT ASLEEP. PATIENT HAS MOORE. CALL LIGHT IN PLACE. WILL CONTINUE TO MONITOR.
[2019-04-22 00:02] VITALS: BP 148/101
[2019-04-22 04:00] VITALS: BP 131/76
--- NOTE | 2019-04-22 05:37 | NUR ---
I have reviewed this patient and I concur with the Shift Assessment completed by the Licensed Practical Nurse today this shift.
[2019-04-22 05:40] LABS: BASOPHILS 0.2 % (0-2); CALC OSMOLALITY 287 mosm/kg (275-300); CALCIUM 8.4 mg/dL (8.5-10.1); CARBON DIOXIDE 34.6 mmol/L (21.0-32.0); CHLORIDE - SERUM 106 mmol/L (98-107); CREATININE - SERUM 0.7 mg/dL (0.6-1.3); GLUCOSE 124 mg/dL (74-106); HEMATOCRIT 44.5 % (42.0-54.0); IMMATURE GRANULOCYTES 0.3 % (0-5); LYMPHOCYTES 35.1 % (15-50); MCH 28.6 pg (26.0-34.0); MCHC 31.5 g/dL (31.0-37.0); MEAN PLATELET VOLUME 9.1 fL (7.4-10.4); MONOCYTES 18.4 % (2-11); PLATELET COUNT 170 10x3/uL (130-400); POTASSIUM - SERUM 3.5 mmol/L (3.5-5.1); RBC 4.89 10x6/uL (4.20-6.10); RDW 15.2 % (11.5-14.5); SODIUM 145 mmol/L (136-145); WBC 5.9 10x3/uL (4.8-10.8); eGFR NON AFRICAN AMERICAN > 90 mL/min (90-120)
[2019-04-22 05:49] LABS: PHOSPHOROUS 3.8 mg/dL (2.5-4.9); UREA NITROGEN 7 mg/dL (7-18)
--- NOTE | 2019-04-22 07:53 | NUR ---
ALERT AND ORIENTED TO SELF AND PLACE. LUNGS DIMINISHED BILATERALLY. HEART SOUNDS S1 AND S2 HEARD IN ALL HAMMER. BOWEL SOUNDS ACTIVE X 4. SKIN INTACT WITHOUT REDNESSS. BIPAP IN PLACE PER RT D/T O2 DESAT TO 84% WHILE ASLEEP WITH 3L NC IN PLACE. DENIES NEEDS. BED LOW. FALL PRECAUTIONS IN PLACE. CALL LANE AND PERSONAL ITEMS IN REACH. WILL CONTINUE TO MONITOR.
[2019-04-22 10:22] VITALS: BP 124/93
--- NOTE | 2019-04-22 12:59 | NUR ---
SITTING IN CHAIR AT BEDSIDE EATING LUNCH. DENIES NEEDS. WILL CONTINUE TO MONITOR.
[2019-04-22 13:59] VITALS: BP 118/71
--- NOTE | 2019-04-22 15:19 | NUR ---
OT NOTE: PT COMPLETED ADL MOB WITH MIN/MOD A. PT COMPLETED BED TO CHAIR TRANSFER WITH MIN/MOD A. PT COMPLETED FACE WASH WITH SETUP AT CHAIR LEVEL. PT COMPLETED BUE AROM AXS WITH ADL TASKS. [id number] THANK YOU,PRIYANKA GARCIA
--- NOTE | 2019-04-22 15:46 | NUR ---
RESTING IN BED. DENIES NEEDS. WILL CONTINUE TO MONITOR.
[2019-04-22 17:52] VITALS: BP 119/88
--- NOTE | 2019-04-22 19:15 | NUR ---
PATIENT IN BED RESTING WITH EYES CLOSED. NO S/S OF ACUTE DISTRESS. NO COMPLAINTS AT THIS TIME. PATIENT IV IN RIGHT SUBCLAVIAN LR @ 75 ML/HR. IV IS PATENT WITHOT REDNESS, SWELLING, OR TENDERNESS. PATIENT IS ON BIPAP WHEN ASLEEP, O2 @ 5L WHEN AWAKE. PATIENT HAS 5L NASAL CANNULA O2. PATIENT HAS MOORE. PATIENT HAS BED ALARM IN PLACE. CALL LIGHT IN PLACE. WILL CONTINUE TO MONITOR.
[2019-04-23 04:00] VITALS: BP 123/76
[2019-04-23 06:48] LABS: BASOPHILS 0.2 % (0-2); HEMATOCRIT 43.8 % (42.0-54.0); HEMOGLOBIN 13.5 g/dL (13.5-17.5); IMMATURE GRANULOCYTES 0.2 % (0-5); LYMPHOCYTES 37.5 % (15-50); MCH 28.3 pg (26.0-34.0); MCHC 30.8 g/dL (31.0-37.0); MCV 91.8 fL (80.0-100.0); MEAN PLATELET VOLUME 9.1 fL (7.4-10.4); MONOCYTES 14.6 % (2-11); NEUTROPHILS 45.5 % (40-80); PLATELET COUNT 162 10x3/uL (130-400); RBC 4.77 10x6/uL (4.20-6.10); RDW 15.2 % (11.5-14.5); WBC 5.5 10x3/uL (4.8-10.8)
[2019-04-23 07:11] LABS: CALC OSMOLALITY 287 mosm/kg (275-300); CALCIUM 8.4 mg/dL (8.5-10.1); CARBON DIOXIDE 34.9 mmol/L (21.0-32.0); CHLORIDE - SERUM 105 mmol/L (98-107); CREATININE - SERUM 0.6 mg/dL (0.6-1.3); GLUCOSE 156 mg/dL (74-106); PHOSPHOROUS 3.4 mg/dL (2.5-4.9); POTASSIUM - SERUM 3.5 mmol/L (3.5-5.1); SODIUM 144 mmol/L (136-145); UREA NITROGEN 6 mg/dL (7-18); eGFR NON AFRICAN AMERICAN > 90 mL/min (90-120)
--- NOTE | 2019-04-23 08:53 | NUR ---
PATIENT RECIEVED RESTING IN BED WITH EYES OPEN. REQUEST BIPAP OFF FOR AM MEAL. RESPIRATIONS REGULAR AND NONLABORED, PLACED ON 5L NC TO EAT. CL IN REACH
[2019-04-23 09:40] VITALS: BP 121/76
[2019-04-23 13:46] VITALS: BP 100/68
[2019-04-23 17:43] VITALS: BP 118/79
--- NOTE | 2019-04-23 19:10 | NUR ---
PATIENT IN BED RESTING. NO S/S OF DISTRESS. NO COMPLAINTS AT THIS TIME. PATIENT HAS R SUBCLAVIAN CENTRAL LINE IV LR @ 75 ML/HR. IV IS PATENT WITHOUT REDNESS, SWELLING, OR TENDERNESS. PATIENT IS ON 5L OF O2. PATIENT HAS BIPAP FOR WHEN ASLEEP. CALL LIGHT IN PLACE. WILL CONTINUE TO MONITOR.
--- NOTE | 2019-04-24 03:35 | NUR ---
I have reviewed this patient and I concur with the Shift Assessment completed by the Licensed Practical Nurse today this shift.
[2019-04-24 06:50] LABS: BASOPHILS 0.1 % (0-2); EOSINOPHILS 0.9 % (0-7); HEMATOCRIT 43.8 % (42.0-54.0); HEMOGLOBIN 13.5 g/dL (13.5-17.5); IMMATURE GRANULOCYTES 0.1 % (0-5); LYMPHOCYTES 44.5 % (15-50); MCH 28.4 pg (26.0-34.0); MCHC 30.8 g/dL (31.0-37.0); MONOCYTES 11.1 % (2-11); NEUTROPHILS 43.3 % (40-80); PLATELET COUNT 162 10x3/uL (130-400); RBC 4.76 10x6/uL (4.20-6.10); RDW 14.5 % (11.5-14.5)
[2019-04-24 07:06] LABS: CALC OSMOLALITY 283 mosm/kg (275-300); CALCIUM 8.4 mg/dL (8.5-10.1); CARBON DIOXIDE 36.2 mmol/L (21.0-32.0); CHLORIDE - SERUM 104 mmol/L (98-107); CREATININE - SERUM 0.7 mg/dL (0.6-1.3); GLUCOSE 125 mg/dL (74-106); POTASSIUM - SERUM 3.6 mmol/L (3.5-5.1); SODIUM 143 mmol/L (136-145); UREA NITROGEN 8 mg/dL (7-18); eGFR NON AFRICAN AMERICAN > 90 mL/min (90-120)
[2019-04-24 07:10] LABS: WBC 7.5 10x3/uL (4.8-10.8)
--- NOTE | 2019-04-24 08:24 | NUR ---
PT FOUND ON ROOM AIR, SPO2- OF 76%, PT DID NOT HAVE OXYGEN ON, PLACE BACK ON 4L/M, CHECK PT BEFORE LEFT UNIT AND SPO2 UP TO 92%, EXPRESSED THE IMPORTANCE OF WEARING OXYGEN.
[2019-04-24 09:21] VITALS: BP 134/75
--- NOTE | 2019-04-24 11:44 | NUR ---
PATIENT RECIEVED RESTING IN BED WITH EYES OPEN, ALERT AND ORIENTED WITH SLOW MENTATION NOTED. RESPIRATIONS CLEAR AND NON-LABORED. 02 5L/NC WITH 02 SAT 90%. INSTRUCTED ON USE OF IS, COUGH AND DEEP BREATHING, PATIENT VOICED UNDERSTANDING. CL IN REACH
[2019-04-24 12:11] VITALS: BP 107/65
[2019-04-24 16:42] VITALS: BP 148/90
--- NOTE | 2019-04-24 17:24 | NUR ---
MOORE CATH REMOVED AND PATIENT ABLE TO VOID 200ML AFTER MOORE REMOVED
--- NOTE | 2019-04-24 19:00 | NUR ---
BEDSIDE REPORT RECEIVED. PATIENT WATCHING FOOTBALL. CALM AND ANSWERS QUESTIONS APPROPRIATELY. ORIENTED X 3. WEARING 5L NC. INFUSING LR @ 75 TO THE RIGHT SUBCLAVIAN. RECEIVED IN REPORT THAT OSCAR WAS DC'D TODAY, PATIENT VOIDING IN URINAL WITH NO PROBLEMS. DENIES PAIN OR DISCOMFORT AT THIS TIME. FALL PRECAUTIONS IN PLACE. REFUSES SCD'S AT THIS TIME. CALL LIGHT CLOSE. CPOC.
[2019-04-24 20:00] VITALS: BP 127/96
--- NOTE | 2019-04-24 21:48 | NUR ---
RESTING WITH EYES CLOSED. 5L NASAL CANNULA REMAINS IN PLACE. NO DISTRESS NOTED. CALL LIGHT CLOSE. CPOC.
[2019-04-25] VITALS: BP 144/93
[2019-04-25 04:00] VITALS: BP 135/98
[2019-04-25 06:50] LABS: BASOPHILS 0.1 % (0-2); EOSINOPHILS 0.5 % (0-7); HEMATOCRIT 41.8 % (42.0-54.0); HEMOGLOBIN 12.9 g/dL (13.5-17.5); IMMATURE GRANULOCYTES 0.3 % (0-5); LYMPHOCYTES 25.5 % (15-50); MCH 28.5 pg (26.0-34.0); MCHC 30.9 g/dL (31.0-37.0); MCV 92.3 fL (80.0-100.0); MEAN PLATELET VOLUME 8.7 fL (7.4-10.4); MONOCYTES 9.1 % (2-11); NEUTROPHILS 64.5 % (40-80); PLATELET COUNT 148 10x3/uL (130-400); RBC 4.53 10x6/uL (4.20-6.10); RDW 14.6 % (11.5-14.5); WBC 7.6 10x3/uL (4.8-10.8)
[2019-04-25 06:55] LABS: CALC OSMOLALITY 284 mosm/kg (275-300); CALCIUM 8.5 mg/dL (8.5-10.1); CARBON DIOXIDE 34.6 mmol/L (21.0-32.0); CHLORIDE - SERUM 105 mmol/L (98-107); CREATININE - SERUM 0.8 mg/dL (0.6-1.3); GLUCOSE 167 mg/dL (74-106); PHOSPHOROUS 3.6 mg/dL (2.5-4.9); POTASSIUM - SERUM 4.1 mmol/L (3.5-5.1); SODIUM 142 mmol/L (136-145); UREA NITROGEN 6 mg/dL (7-18); eGFR NON AFRICAN AMERICAN > 90 mL/min (90-120)
[2019-04-25 08:16] VITALS: BP 107/74
--- NOTE | 2019-04-25 09:00 | NUR ---
PT SITTING UP IN BED. RESP SHALLOW. O2 @ 8L HIFLO. DENIES PAIN AT THIS TIME. RIGHT SUBCLAVIAN WITH LR INFUSING @ 75ML/HR VIA PUMP. SITE WITHOUT REDNESS OR EDEMA. DENIES FURTHER NEEDS AT THIS TIME. CL WITHIN REACH. ENCOURAGED TO CALL WITH NEEDS. CONTINUE POC
[2019-04-25 12:15] VITALS: BP 127/89
--- NOTE | 2019-04-25 12:59 | NUR ---
OT NOTE: IN ROOM AMBULATION WITH WALKER AND MIN ASSIST; ABLE TO WASH FACE AND HANDS WITH SET UP; ABLE TO MARK GOWN WITH MIN ASSIST. LIMITED VERBALIZATION DURING THERAPY. TRANSFERS WITH USE OF WALKER WITH MIN ASSIST..MOD ASSIST WITHOUT USE OF WALKER. RUT ARAGON, OTR/L
--- NOTE | 2019-04-25 13:14 | NUR ---
Nutrition follow-up: Diet: Regular with no restrictions at this time Wt: 276# Labs reviewed PO intake ~50-75% of meals Will continue to provide food choices and honor food preferences. RDN following.
[2019-04-25 16:14] VITALS: BP 118/78
--- NOTE | 2019-04-25 19:30 | NUR ---
PT SITTING UP IN BED WITHOUT DISTRESS, AOX3, CONFUSED TO SITUATION AT TIMES. O2 8L/HFNC. BIPAP AT BEDSIDE. RIGHT SUBCLAVIAN INFUSING LR @ 75. REFUSES SCDS. JAVED ON. UP WITH ASSIST TO BEDSIDE COMMODE. PROVIDED ICE WATER. DENIES NEEDS, CL IN REACH, WILL CTM
--- NOTE | 2019-04-25 19:39 | NUR ---
OT NOTE: PT COMPLETED SIT TO STAND WITH SBA. PT COMPLETED ADL MOB WITH CGA. PT COMPLETED BATHING TASKS WITH SET UP WHILE SEATED IN CHAIR. PT COMPLETED BUE AROM AXS WITH BATHING TASKS. [phone] THANK YOU,PRIYANKA GACRIA
[2019-04-25 21:03] VITALS: BP 115/78
--- NOTE | 2019-04-25 23:30 | NUR ---
LR DECREASED TO 30ML/HR AT THIS TIME
[2019-04-26 00:56] VITALS: BP 122/83
[2019-04-26 05:46] VITALS: BP 133/92
[2019-04-26 06:00] LABS: BASOPHILS 0.2 % (0-2); EOSINOPHILS 0.5 % (0-7); HEMATOCRIT 39.2 % (42.0-54.0); IMMATURE GRANULOCYTES 0.2 % (0-5); LYMPHOCYTES 36.8 % (15-50); MCH 28.3 pg (26.0-34.0); MCHC 30.6 g/dL (31.0-37.0); MCV 92.5 fL (80.0-100.0); MEAN PLATELET VOLUME 8.8 fL (7.4-10.4); MONOCYTES 9.7 % (2-11); NEUTROPHILS 52.6 % (40-80); PLATELET COUNT 160 10x3/uL (130-400); RBC 4.24 10x6/uL (4.20-6.10); RDW 14.8 % (11.5-14.5); WBC 6.5 10x3/uL (4.8-10.8)
[2019-04-26 06:08] LABS: CALC OSMOLALITY 279 mosm/kg (275-300); CALCIUM 8.2 mg/dL (8.5-10.1); CHLORIDE - SERUM 106 mmol/L (98-107); CREATININE - SERUM 0.7 mg/dL (0.6-1.3); MAGNESIUM - SERUM 1.6 mg/dL (1.8-2.4); PHOSPHOROUS 4.4 mg/dL (2.5-4.9); POTASSIUM - SERUM 4.1 mmol/L (3.5-5.1); SODIUM 141 mmol/L (136-145); UREA NITROGEN 6 mg/dL (7-18); eGFR NON AFRICAN AMERICAN > 90 mL/min (90-120)
[2019-04-26 06:20] LABS: GLUCOSE 119 mg/dL (74-106)
--- NOTE | 2019-04-26 07:25 | NUR ---
PT SITTING UP IN BED WITH BIPAP IN PLACE. PT AT THIS TIME COMPLIANT WITH BIPAP USE RECOMMENDATIONS. DENIES PAIN AT THIS TIME. RIGHT SUBCLAVIAN INTACT WITH LR @ 30ML/HR INFUSING VIA PUMP. SITE WITHOUT REDNESS OR EDEMA. REFUSES SCD'S AT THIS TIME. DENIES FURTHER NEEDS AT THIS TIME. CL WITHIN REACH. ENCOURAGED TO CALL WITH NEEDS. CONTINUE POC
[2019-04-26 08:30] VITALS: BP 122/87
--- NOTE | 2019-04-26 12:37 | NUR ---
OT NOTE: PT ALARM GOING OFF. HE IS STANDING UP AT EOB WITH IVS AND 02 TUBING PULLED TAUGHT. PT ATTEMPTING TO GET TO BS COMMODE BUT URINATED ALL OVER THE FLOOR. ASSISTED PT BACK TO SITTING ON EOB. PROVIDED WASH CLOTH AND PT WAS ABLE TO WASH FACE, HANDS, AND UPPER BODY WITH VERBAL CUES FOR EACH PART. MOD ASSIST TO CLEAN LEGS AND MAX ASSIST TO BATHE PERINEAL AREA. PT ABLE TO STAND WITH MIN ASSIST WHILE LINENS WERE CHANGED. RE ARRANGED ROOM SO THAT BS COMMODE WAS CLOSER TO PT. PT ABLE TO STAND IWTH MIN ASSIST AND USE BS COMMODE AGAIN. DRESSING WITH MIN ASSIST FOR GOWN AND MAX ASSIST FOR SOCKS. BACK TO BED IWTH MOD ASSIST. EDUCATION ON SAFETY AND USE OF CALL LIGHT. RUT ARAGON, OTR/L [phone]
[2019-04-26 15:06] VITALS: BP 139/87
[2019-04-26 16:45] VITALS: BP 113/79
--- NOTE | 2019-04-26 19:30 | NUR ---
PT SITTING UP IN BED WITHOUT DISTRESS, AOX4. RIGHT SUBCLAVIAN INFUSING LR @ 30. PT HAD NC OFF UPON ENTERING ROOM, PULSE OX 76%. PLACED NC BACK ON PT. O2 >93% ON 8L. REFUSES SCDS. DENIES NEEDS. AT THIS TIME. JAVED ON. CL IN REACH. WILL CTM
[2019-04-26 20:00] VITALS: BP 152/106
[2019-04-26 21:02] LABS: UDS - AMPHET NEGATIVE QUAL (NEGATIVE); UDS - BARB NEGATIVE QUAL (NEGATIVE); UDS - BENZO NEGATIVE QUAL (NEGATIVE); UDS - COCAINE NEGATIVE QUAL (NEGATIVE); UDS - OPIATE NEGATIVE QUAL (NEGATIVE); UDS - PCP NEGATIVE QUAL (NEGATIVE); UDS - THC NEGATIVE QUAL (NEGATIVE)
--- NOTE | 2019-04-26 23:30 | NUR ---
PT BIPAP ALARM SOUNDING EVERY 15-20MIN SINCE BEING PLACED ON BIPAP. PT IS NOT BEING COMPLIANT. TAKES MASK OFF AND O2 DECREASEDS TO MID 70S LOWER 80S. THIS NURSE HAS PLACED BIPAP ON PT MULTIPLE TIMES AND RT HAS TALKED WITH PT ABOUT NEED TO KEEP BIPAP ON. WILL CTM
--- NOTE | 2019-04-27 01:00 | NUR ---
PT WILL NOT LEAVE BIPAP ON. REFUSES TO PUT IT BACK ON WHEN THIS NURSE ENTERS ROOM. PLACED NASAL CANULA ON PT. THIS NURSE LEFT ROOM AND RT CAME TO SEE PT 5MIN LATER AND PT HAD NASAL CANULA OFF AND O2 SAT WAS 76%. RT PLACED NASAL CANULA BACK ON PT
[2019-04-27 04:00] VITALS: BP 114/83
[2019-04-27 06:31] LABS: BASOPHILS 0.3 % (0-2); EOSINOPHILS 0.8 % (0-7); HEMATOCRIT 42.7 % (42.0-54.0); HEMOGLOBIN 12.9 g/dL (13.5-17.5); IMMATURE GRANULOCYTES 0.2 % (0-5); LYMPHOCYTES 35.2 % (15-50); MCH 28.2 pg (26.0-34.0); MCHC 30.2 g/dL (31.0-37.0); MCV 93.2 fL (80.0-100.0); MEAN PLATELET VOLUME 8.8 fL (7.4-10.4); NEUTROPHILS 54.5 % (40-80); PLATELET COUNT 192 10x3/uL (130-400); RBC 4.58 10x6/uL (4.20-6.10); RDW 14.7 % (11.5-14.5); WBC 6.3 10x3/uL (4.8-10.8)
[2019-04-27 06:48] LABS: CALC OSMOLALITY 280 mosm/kg (275-300); CALCIUM 8.5 mg/dL (8.5-10.1); CARBON DIOXIDE 34.2 mmol/L (21.0-32.0); CHLORIDE - SERUM 103 mmol/L (98-107); CREATININE - SERUM 0.7 mg/dL (0.6-1.3); GLUCOSE 140 mg/dL (74-106); MAGNESIUM - SERUM 1.6 mg/dL (1.8-2.4); POTASSIUM - SERUM 4.1 mmol/L (3.5-5.1); SODIUM 141 mmol/L (136-145); UREA NITROGEN 7 mg/dL (7-18); eGFR NON AFRICAN AMERICAN > 90 mL/min (90-120)
[2019-04-27 08:48] VITALS: BP 115/68
--- NOTE | 2019-04-27 09:00 | NUR ---
PATIENT BATHED AND ROOM CLEANED AT THIS TIME.
--- NOTE | 2019-04-27 10:30 | NUR ---
PATIENT SATS 85 ON RA. PLACED PATIENT BACK ON 3LNC PATIENT 92-94%. IV INTACT. NO COMPLAINTS AT THIS TIME. SITTING UP IN CHAIR. CALL LIGHT WITHIN REACH.
[2019-04-27 12:48] VITALS: BP 118/88
--- NOTE | 2019-04-27 15:30 | NUR ---
PATIENT IN CHAIR WITH NO COMPLAINTS OR SIGNS OF DISTRESS. WALKED WITH PT EARLIER THIS AM. NO PROBLEMS AT THIS TIME. CALL LIGHT WITHIN REACH.
--- NOTE | 2019-04-27 15:48 | NUR ---
OT NOTE: ASSISTED PT WITH SHOWER. PT HAD BEEN UP IN ROOM ATTEMPTING TO USE URINAL AND BS COMMODE.. URINE ALL OVER THE FLOOR. EDUCATED PT ON URINAL USE!!!! AFTER CLEANING AND DRYING THE FLOOR, AMB PT WITH WALKER TO SHOWER. SHOWER TRANSFER WITH MIN ASSIST. ABLE TO SIT ON SHOWER BENCH WITH MIN ASSIST; BATHING WITH MIN ASSSIST AND CONSTANT VERBAL CUES FOR EACH STEP.. PT DOES NOT INITATE ANY BATHING TASKS. MAX ASSIST WITH PERINEAL CLEANING; MAX ASSIST TO MARK SOCKS; MIN ASSIST TO MARK GOWN. MIN ASSIST FOR SINK HYGIENE. CONTINUED CUES FOR SAFETY AWARENESS DUE TO IV LINES AND 02.. MAX CUES TO KEEP O2 ON. RUT ARAGON, OTR/L
[2019-04-27 16:40] VITALS: BP 134/97
--- NOTE | 2019-04-27 17:01 | NUR ---
OT NOTE: PT COMPLETED DYNAMIC STANDING WHILE AT SINK COMPLETING HYGIENE AND GROOMING TASKS REQUIRED SBA. PT COMPLETED BUE AROM WITH FUNCTIONAL TASKS. [phone] THANK YOU,PRIYANKA GARCIA
--- NOTE | 2019-04-27 18:30 | NUR ---
PATIENT IN CHAIR WITH NO COMPLAINTS OR SIGNS OF DISTRESS. IV INTACT. O2 ON AT 3L NC. SATS WNL. CVL DRESSING CHANGED AT THIS TIME. CALL LIGHT WITHIN REACH.
[2019-04-27 20:00] VITALS: BP 141/94
--- NOTE | 2019-04-27 21:00 | NUR ---
ALERT BUT DISORIENTED TO TIME AND SITUATION. RT SUBCLAVIAN NOTED WITH DRESSING CLEAN/INTACT. NC @3L HIGH FLOW AND JAVED ALARM ON. GAVE WARM BLANKET PER PT REQUEST. NO OTHER NEEDS NOTED AT THIS TIME. CONTINUE PLAN OF CARE
[2019-04-28] VITALS: BP 118/77
[2019-04-28 04:00] VITALS: BP 119/79
[2019-04-28 06:36] LABS: BASOPHILS 0.2 % (0-2); EOSINOPHILS 0.8 % (0-7); HEMATOCRIT 43.1 % (42.0-54.0); HEMOGLOBIN 13.3 g/dL (13.5-17.5); IMMATURE GRANULOCYTES 0.2 % (0-5); MCH 28.7 pg (26.0-34.0); MCHC 30.9 g/dL (31.0-37.0); MCV 93.1 fL (80.0-100.0); MEAN PLATELET VOLUME 8.9 fL (7.4-10.4); MONOCYTES 9.3 % (2-11); NEUTROPHILS 50.5 % (40-80); PLATELET COUNT 208 10x3/uL (130-400); RBC 4.63 10x6/uL (4.20-6.10); RDW 14.5 % (11.5-14.5)
[2019-04-28 06:50] LABS: CALC OSMOLALITY 279 mosm/kg (275-300); CALCIUM 8.8 mg/dL (8.5-10.1); CARBON DIOXIDE 34.2 mmol/L (21.0-32.0); CHLORIDE - SERUM 103 mmol/L (98-107); CREATININE - SERUM 0.7 mg/dL (0.6-1.3); GLUCOSE 122 mg/dL (74-106); POTASSIUM - SERUM 4.2 mmol/L (3.5-5.1); SODIUM 141 mmol/L (136-145); UREA NITROGEN 8 mg/dL (7-18); eGFR NON AFRICAN AMERICAN > 90 mL/min (90-120)
[2019-04-28 08:49] VITALS: BP 111/78
[2019-04-28 12:54] VITALS: BP 100/66
--- NOTE | 2019-04-28 13:55 | MORECARE ---
CASE MANAGEMENT DISCHARGE SUMMARY PATIENT: RUPERT SAAB UNIT: [id number] ADM DATE: 04/13/19 AGE: 43 : [birth year] SEX: M ROOM/BED: D.2212 AUTHOR: CASSIE,DOC PHYSICIAN: REFERRING PHYSICIAN: ALEM SUMMERS MD DATE OF SERVICE: 04/28/19 Discharge Plan Patient Name: RUPERT SAAB Facility: [facility]:[place] : 1975 Planned Disposition: Anticipated Discharge Date: Discharge Date: Expected LOS: Initial Reviewer: [email or web address] Initial Review Date: 04/14/2019 Generated: 04/28/19 2:54 pm DCP- Discharge Planning Updated by [email or web address]: Yola Ramirez on 04/14/19 7:[address] Patient Name: RUPERT SAAB Admission Status: ER Accout number: [id number] Admission Date: 04-13-2019 : 1975 Admission Diagnosis: Attending: JATIN Current LOS: 1 Anticipated DC Date: Planned Disposition: Primary Insurance: MEDICAID [place] Discharge Planning Comments: CM met with patient's uncle at bedside after explaining CM role and obtaining verbal consent. Patient is currently on BiPap and not responding well. Patient lives at home alone where he is independent with his care and plans to return there upon discharge. CM discussed availability / needs of home health and medical equipment. Unknown discharge needs at this time. CM will continue to follow and assist as needed with discharge planning / needs. Deck Hand: Yola Ramirez DCPIA - Discharge Planning Initial Assessment Updated by [email or web address]: Yola Ramirez on 04/14/19 8:14 pm * Is the patient Alert and Oriented? Yes * How many steps to enter\exit or inside your home? 1-2 * PCP Joshua * Pharmacy [facility] * Preadmission Environment Home Alone * ADLs Independent * Equipment None * Verbal permission to speak to the caregivers and representatives has been obtained from the patient. N/A * Community resources currently utilized None * Additional services required to return to the preadmission environment? No * Can the patient safely return to the preadmission environment? Yes * Has this patient been hospitalized within the prior 30 days at any hospital? No Last DP export: 04/14/19 7:19 pm Patient Name: RUPERT SAAB Page [id number] at 1355 All edits/amendments must be made on the electronic document DICTATION DATE: 04/28/19 1350 HUMAN RESOURCES COMMUNICATIONS MANAGER: SUKHWINDER 04/28/19 1359 RPT#: [id number] DC DATE: STATUS: ADM IN [facility] [address] [place] [address] END OF REPORT
--- NOTE | 2019-04-28 14:17 | MORECARE ---
CASE MANAGEMENT DISCHARGE SUMMARY PATIENT: RUPERT SAAB UNIT: [id number] ADM DATE: 04/13/19 AGE: 43 : [birth year] SEX: M ROOM/BED: D.2212 AUTHOR: CASSIE,DOC PHYSICIAN: REFERRING PHYSICIAN: ALEM SUMMERS MD DATE OF SERVICE: 04/28/19 Discharge Plan Patient Name: RUPERT SAAB Facility: [facility]:[place] : 1975 Planned Disposition: Anticipated Discharge Date: Discharge Date: Expected LOS: Initial Reviewer: [email or web address] Initial Review Date: 04/14/2019 Generated: 04/28/19 3:17 pm DCP- Discharge Planning Updated by [email or web address]: Yola Ramirez on 04/14/19 7:[address] Patient Name: RUPERT SAAB Admission Status: ER Accout number: [id number] Admission Date: 04-13-2019 : 1975 Admission Diagnosis: Attending: JATIN Current LOS: 1 Anticipated DC Date: Planned Disposition: Primary Insurance: MEDICAID [place] Discharge Planning Comments: CM met with patient's uncle at bedside after explaining CM role and obtaining verbal consent. Patient is currently on BiPap and not responding well. Patient lives at home alone where he is independent with his care and plans to return there upon discharge. CM discussed availability / needs of home health and medical equipment. Unknown discharge needs at this time. CM will continue to follow and assist as needed with discharge planning / needs. Grocery Worker: Yola Ramirez DCPIA - Discharge Planning Initial Assessment Updated by [email or web address]: Yola Ramirez on 04/14/19 8:14 pm * Is the patient Alert and Oriented? Yes * How many steps to enter\exit or inside your home? 1-2 * PCP Joshua * Pharmacy [facility] * Preadmission Environment Home Alone * ADLs Independent * Equipment None * Verbal permission to speak to the caregivers and representatives has been obtained from the patient. N/A * Community resources currently utilized None * Additional services required to return to the preadmission environment? No * Can the patient safely return to the preadmission environment? Yes * Has this patient been hospitalized within the prior 30 days at any hospital? No External Providers External Provider: Emily Next Contact Date: Service Request Date: Service Type: Resolution: Reviewer: Comments: External Provider: [facility] Next Contact Date: Service Request Date: Service Type: Resolution: Reviewer: Comments: External Provider: [facility] Next Contact Date: Service Request Date: Service Type: Resolution: Reviewer: Comments: Last DP export: 04/28/19 12:55 p Patient Name: RUPERT SAAB Page 10121 at 1417 All edits/amendments must be made on the electronic document DICTATION DATE: 04/28/191416 HOB MACHINE OPERATOR: SUKHWINDER 04/28/191416 RPT#: [id number] DC DATE: STATUS: ADM IN [facility] [address] [place] [address] END OF REPORT
--- NOTE | 2019-04-28 14:30 | MORECARE ---
CASE MANAGEMENT DISCHARGE SUMMARY PATIENT: RUPERT SAAB UNIT: [id number] ADM DATE: 04/13/19 AGE: 43 : 79 SEX: M ROOM/BED: D.2212 AUTHOR: CASSIE,DOC PHYSICIAN: REFERRING PHYSICIAN: ALEM SUMMERS MD DATE OF SERVICE: 04/28/19 Discharge Plan Patient Name: RUPERT SAAB Facility: [facility]:[place] : 1975 Planned Disposition: Anticipated Discharge Date: Discharge Date: Expected LOS: Initial Reviewer: [email or web address] Initial Review Date: 04/14/2019 Generated: 04/28/19 3:30 pm Comments DCP- Discharge Planning Updated by [email or web address]: Lachelle Severino on 04/28/19 1:[address] CM met with patient to obtain information for the dc plan. Patient signed SHARONA for [facility], [facility], and Home instead, and was placed in chart. DCP- Discharge Planning Updated by [email or web address]: Lachelle Severino on 04/28/19 1:[address] Patient Name: RUPERT SAAB Encounter No: [id number] : 1975 Primary Insurance: MEDICAID [place] Anticipated DC Date: Planned Disposition: External Planned Provider: : CM met with patient to obtain information for the dc plan. CM educated patient on the CM role and verbal consent given by patient to speak with patient uncle (Rolly Meléndez @[phone]) to clarify patient needs. Patient lives at home alone, but has family that lives nearby in the same apartment building. At discharge Rolly states the patient will return home with the help of family. CM spoke with the patient and he states he wants to return home. Both parties are in agreement of needing additional assistance. Patient signed SHARONA for [facility], and Home instead. plans to return home and feels this is a safe discharge. CM will continue to follow and will assist as needed with dc plans/needs. DCP follow-up note: Patient and family in agreement with discharge plan. No changes to plan. Case management will follow and assist as needed. Lachelle Severino DCP- Discharge Planning Updated by [email or web address]: Yola Ramirez on 04/14/19 7:[address] Patient Name: RUPERT SAAB Admission Status: ER Accout number: [id number] Admission Date: 04-13-2019 : 1975 Admission Diagnosis: Attending: JATIN Current LOS: 1 Anticipated DC Date: Planned Disposition: Primary Insurance: MEDICAID [place] Discharge Planning Comments: CM met with patient's uncle at bedside after explaining CM role and obtaining verbal consent. Patient is currently on BiPap and not responding well. Patient lives at home alone where he is independent with his care and plans to return there upon discharge. CM discussed availability / needs of home health and medical equipment. Unknown discharge needs at this time. CM will continue to follow and assist as needed with discharge planning / needs. Strategic Development Manager: Yola Ramirez REBEKA - Discharge Planning Initial Assessment Updated by [email or web address]: Yola Ramirez on 04/14/19 8:14 pm * Is the patient Alert and Oriented? Yes * How many steps to enter\exit or inside your home? 1-2 * PCP Joshua * Pharmacy [facility] * Preadmission Environment Home Alone * ADLs Independent * Equipment None * Verbal permission to speak to the caregivers and representatives has been obtained from the patient. N/A * Community resources currently utilized None * Additional services required to return to the preadmission environment? No * Can the patient safely return to the preadmission environment? Yes * Has this patient been hospitalized within the prior 30 days at any hospital? No Coverage Notice Reviewer: [email or web address] Allison Severino Notice Issued Date-Time: 04/28/2019 11:20 Notice Type: Patient Choice Letter Notice Delivered To: Patient Relationship to Patient: Metallurgical Technician Name: Delivery Method: HAND - Hand Delivered Kriss Days: Prior Verbal Notification: Recipient Understood Notice: Yes Recipient Signature: Yes Med Rec Note Co-signed by Attending: Coverage Notice Comment: SHARONA for [facility], and home instead Last DP export: 04/28/19 1:17 p Patient Name: RUPERT SAAB Page [phone] at 1430 All edits/amendments must be made on the electronic document DICTATION DATE: 04/28/19 1430 RESIDENTIAL MORTGAGE UNDERWRITER: SUKHWINDER 04/28/19 1430 RPT#: [id number] DC DATE: STATUS: ADM IN [facility] [address] [place] [place] [address] END OF REPORT
[2019-04-28 17:49] VITALS: BP 117/78
--- NOTE | 2019-04-28 18:42 | NUR ---
OT NOTE: PT EXHIBITED POOR SAFETY AWARENESS. PT COMPLETED ADL MOB WITH CGA. PT COMPLETED FACE WASHING WITH SBA. PT COMPLETED UE AROM EX. [phone] THANK YOU,PRIYANKA GARCIA
[2019-04-28 20:00] VITALS: BP 116/71
--- NOTE | 2019-04-28 20:00 | NUR ---
RESTING IN BED COMFORTABLY. NO SIGNS OF DISTRESS. CLEAN/DRY DRESSING TO THE RT SUBCLAVIAN. NC @3L. DENIES NO NEEDS AT THIS TIME. CONTINUE PLAN OF CARE.
[2019-04-29] VITALS: BP 140/83
[2019-04-29 04:00] VITALS: BP 130/84
[2019-04-29 06:28] LABS: BASOPHILS 0.2 % (0-2); EOSINOPHILS 0.9 % (0-7); HEMATOCRIT 41.9 % (42.0-54.0); HEMOGLOBIN 12.9 g/dL (13.5-17.5); LYMPHOCYTES 39.6 % (15-50); MCH 28.6 pg (26.0-34.0); MCHC 30.8 g/dL (31.0-37.0); MCV 92.9 fL (80.0-100.0); MEAN PLATELET VOLUME 8.7 fL (7.4-10.4); MONOCYTES 7.5 % (2-11); NEUTROPHILS 51.8 % (40-80); PLATELET COUNT 210 10x3/uL (130-400); RBC 4.51 10x6/uL (4.20-6.10); RDW 14.3 % (11.5-14.5); WBC 5.4 10x3/uL (4.8-10.8)
[2019-04-29 06:51] LABS: CALC OSMOLALITY 282 mosm/kg (275-300); CALCIUM 8.6 mg/dL (8.5-10.1); CARBON DIOXIDE 32.7 mmol/L (21.0-32.0); CHLORIDE - SERUM 105 mmol/L (98-107); CREATININE - SERUM 0.7 mg/dL (0.6-1.3); GLUCOSE 119 mg/dL (74-106); MAGNESIUM - SERUM 1.8 mg/dL (1.8-2.4); POTASSIUM - SERUM 4.3 mmol/L (3.5-5.1); SODIUM 142 mmol/L (136-145); UREA NITROGEN 9 mg/dL (7-18); eGFR NON AFRICAN AMERICAN > 90 mL/min (90-120)
--- NOTE | 2019-04-29 07:43 | NUR ---
PT IS RESTING IN BED WITH EYES OPEN. RESPIRAITONS ARE EVEN AND UNLABORED. PT IS AAO X 4 BUT IS SLOW TO RESPOND AND ANSWERS QUESTIONS APPROPRIATELY. PT WITH SLURRED WORDS BUT IS UNDERSTANDABLE. PT DENIES PRESENCEO OF PAIN/N/V/DYSPNEA AT THIS TIME. BED IS IN THE LOWEST POSITION. CALL LIGHT AND BEDSIDE TABLE ARE WITHIN REACH. SIDE RAILS X 2. PT DENIES FURTHER NEEDS. WILL CONT TO MONIOTR.
[2019-04-29 09:16] VITALS: BP 108/79
[2019-04-29] MEDS ORDERED: NORVASC10 MG PT (11:02)
[2019-04-29] MEDS ORDERED: Lantus Insulin SC (11:02)
[2019-04-29] MEDS ORDERED: HYDRALAZINE HCL10 MG PO (11:03)
--- NOTE | 2019-04-29 12:55 | MORECARE ---
CASE MANAGEMENT DISCHARGE SUMMARY PATIENT: RUPERT SAAB UNIT: [id number] ADM DATE: 04/13/19 AGE: 43 : 79 SEX: M ROOM/BED: D.2212 AUTHOR: CASSIE,DOC PHYSICIAN: REFERRING PHYSICIAN: ALEM SUMMERS MD DATE OF SERVICE: 04/29/19 Discharge Plan Patient Name: RUPERT SAAB Facility: [facility]:[place] : 1975 Planned Disposition: Anticipated Discharge Date: Discharge Date: Expected LOS: Initial Reviewer: [email or web address] Initial Review Date: 04/14/2019 Generated: 04/29/19 1:55 pm Comments DCP- Discharge Planning Updated by [email or web address]: Nina Rivas on 04/29/19 11:[address] I HAVE SPOKE [facility] TO CONFIRM THAT HE WAS A CURRENT PATIENT THERE. THEY WERE GOING TO MAKE SHRE THAT DR LUZ VENTURA WAS ASSIGNED TO HIM SO HE COULD HAVE HOME HEALTH. I RE-DID HIS WALK TEST TO CHECK HIS O2 NEEDS AND HE DROPPED TO 87% WHEN AMBULATED. I ORDERED 2 L O2 THROUGH [facility] AND THEY WILL DELIVERED PORTABLE TO THE HOSPITAL AND O2 TO HIS HOME. I SPOKE WITH ELEAZAR. I ALSO CALLED HIS UNCLE, ERNESTO TO SPEAK TO HIM ABOUT DISCHARGE. I EXPLAINED TO HIM THAT THE MD WANTED SOMEONE TO STAY WITH HIM TILL THEY THOUGHT HE WAS SAFE. HIS BROTHER AND SISTER IN LAW LIVE RIGHT NEXT DOOR. HIS UNCLE SAID THEY WOULD BE CHECKING ON HIM AND HAS GOOD SUPPORT SYSTEM. WE HAVE SENT A REFERRAL TO [facility] WILL BE HIS D[facility]. ERNESTO WILL BE HIS CRANE HELPER HOME TODAY. CM WILL CONTINUE TO FOLLOW AND ASSIT WITH DC PLANNING NEEDS DCP- Discharge Planning Updated by [email or web address]: Lachelle Severino on 04/28/19 1:[address] CM met with patient to obtain information for the dc plan. Patient signed SHARONA for [facility], and Home instead, and was placed in chart. DCP- Discharge Planning Updated by [email or web address]: Lachelle Severino on 04/28/19 1:[address] Patient Name: RUPERT SAAB Encounter No: [id number] : 1975 Primary Insurance: MEDICAID [place] Anticipated DC Date: Planned Disposition: External Planned Provider: : CM met with patient to obtain information for the dc plan. CM educated patient on the CM role and verbal consent given by patient to speak with patient uncle (Rolly Meléndez @[phone]) to clarify patient needs. Patient lives at home alone, but has family that lives nearby in the same apartment building. At discharge Rolly states the patient will return home with the help of family. CM spoke with the patient and he states he wants to return home. Both parties are in agreement of needing additional assistance. Patient signed SHARONA for [facility], and Home instead. plans to return home and feels this is a safe discharge. CM will continue to follow and will assist as needed with dc plans/needs. DCP follow-up note: Patient and family in agreement with discharge plan. No changes to plan. Case management will follow and assist as needed. Lachelle Severino DCP- Discharge Planning Updated by [email or web address]: Yola Ramirez on 04/14/19 7:[address] Patient Name: RUPERT SAAB Admission Status: ER Accout number: [id number] Admission Date: 04-13-2019 : 1975 Admission Diagnosis: Attending: JATIN Current LOS: 1 Anticipated DC Date: Planned Disposition: Primary Insurance: MEDICAID [place] Discharge Planning Comments: CM met with patient's uncle at bedside after explaining CM role and obtaining verbal consent. Patient is currently on BiPap and not responding well. Patient lives at home alone where he is independent with his care and plans to return there upon discharge. CM discussed availability / needs of home health and medical equipment. Unknown discharge needs at this time. CM will continue to follow and assist as needed with discharge planning / needs. Elevator Constructor Hydraulic: Yola Ramirez DCPIA - Discharge Planning Initial Assessment Updated by [email or web address]: Yola Ramirez on 04/14/19 8:14 pm * Is the patient Alert and Oriented? Yes * How many steps to enter\exit or inside your home? 1-2 * PCP Joshua * Pharmacy [facility] * Preadmission Environment Home Alone * ADLs Independent * Equipment None * Verbal permission to speak to the caregivers and representatives has been obtained from the patient. N/A * Community resources currently utilized None * Additional services required to return to the preadmission environment? No * Can the patient safely return to the preadmission environment? Yes * Has this patient been hospitalized within the prior 30 days at any hospital? No Coverage Notice Reviewer: [id number] Allison Severino Notice Issued Date-Time: 04/28/2019 11:20 Notice Type: Patient Choice Letter Notice Delivered To: Patient Relationship to Patient: Supervisor Shop Name: Delivery Method: HAND - Hand Delivered Kriss Days: Prior Verbal Notification: Recipient Understood Notice: Yes Recipient Signature: Yes Med Rec Note Co-signed by Attending: Coverage Notice Comment: [facility]AR[facility] for [facility], and home instead Last DP export: 04/28/19 1:30 p Patient Name: RUPERT SAAB Page 98740 at 1255 All edits/amendments must be made on the electronic document DICTATION DATE: 04/29/19 1255 CEMETERY LABORER: SUKHWINDER 04/29/19 1255 RPT#: [id number] DC DATE: STATUS: ADM IN [facility] [address] [place] [address] END OF REPORT
[2019-04-29 13:10] VITALS: BP 125/71
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
--- NOTE | 2019-04-29 14:33 | NUR ---
RIGHT SUBCLAVIAN IV REMOVED WITH CATHETER TIP INTACT. OCCLUSIVE DRESSING APPLIED. PRESSURE HELD FOR 5 MINUTES. PT INSTRUCTED TO REMAIN LAYING FOR 15 MINUTES. PT VERBALIZES UNDERSTANDING AND IS LAYING IN BED. BED IS IN THE LOWEST POSITION. CALL LIGHT AND BEDSIDE TABLE ARE WITHIN REACH. SIDE RAILS X 2. PT DENIES FURTHER NEEDS. WILL CONT TO MONITOR.
--- NOTE | 2019-04-29 14:59 | NUR ---
PT WITHOUT S/S OF HEMORRHAGE. DRESSING TO RIGHT CHEST CDI. ALL DISCHARGE INSTRUCTIONS COVERED WITH PT AND PT FAMILY MEMBER. PT SIGNS DISCHARPE PAPERS. PT DENIES FURTHER QUESTIONS/CONCERNS/NEEDS AT THIS TIME. PT STATES "I AM READY TO GET OUT OF HERE". PT THANK S THIS NURSE FOR CARE GIVEN DURING THIS SHIFT. ALL SIGNED DISCHARGE PAPERS PLACED. IN PT CHART. PT TRANSPORTED FROM ROOM VIA WHEELCHAIR ESCORTED BY HOSPITAL VOLUNTEER. PT WITH HOME O2.
--- NOTE | 2019-04-29 15:31 | MORECARE ---
CASE MANAGEMENT DISCHARGE SUMMARY PATIENT: RUPERT SAAB UNIT: [id number] ADM DATE: 04/13/19 AGE: 43 : [birth year] SEX: M ROOM/BED: D.2212 AUTHOR: CASSIE,DOC PHYSICIAN: REFERRING PHYSICIAN: ALEM SUMMERS MD DATE OF SERVICE: 04/29/19 Discharge Plan Patient Name: RUPERT SAAB Facility: [facility]:[place] : 1975 Planned Disposition: Anticipated Discharge Date: Discharge Date: 04/29/2019 Expected LOS: Initial Reviewer: [email or web address] Initial Review Date: 04/14/2019 Generated: 04/29/19 4:31 pm Comments DCP- Discharge Planning Updated by [email or web address]: Nina Rivas on 04/29/19 2:[address] [facility] HAS DELIVERED THE O2 AT THE BEDSIDE, HOME HEALTH WITH [facility] WILL START TOMORROW I SPOKE WITH RANGEL AT [facility]. DCP- Discharge Planning Updated by [email or web address]: Nina Rivas on 04/29/19 11:[address] I HAVE SPOKE [facility] TO CONFIRM THAT HE WAS A CURRENT PATIENT THERE. THEY WERE GOING TO MAKE SHRE THAT DR LUZ VENTURA WAS ASSIGNED TO HIM SO HE COULD HAVE HOME HEALTH. I RE-DID HIS WALK TEST TO CHECK HIS O2 NEEDS AND HE DROPPED TO 87% WHEN AMBULATED. I ORDERED [facility] L [facility] AND THEY WILL DELIVERED PORTABLE TO THE HOSPITAL AND O2 TO HIS HOME. I SPOKE WITH [facility]. I ALSO CALLED HIS UNCLE, ERNESTO TO SPEAK TO HIM ABOUT DISCHARGE. I EXPLAINED TO HIM THAT THE MD WANTED SOMEONE TO STAY WITH HIM TILL THEY THOUGHT HE WAS SAFE. HIS BROTHER AND SISTER IN LAW LIVE RIGHT NEXT DOOR. HIS UNCLE SAID THEY WOULD BE CHECKING ON HIM AND HAS GOOD SUPPORT SYSTEM. WE HAVE SENT A REFERRAL TO [facility] WILL BE HIS D[facility]. ERNESTO WILL BE HIS QUALITY OFFICER HOME TODAY. CM WILL CONTINUE TO FOLLOW AND ASSIT WITH DC PLANNING NEEDS DCP- Discharge Planning Updated by [id number]: Lachelle Severino on 04/28/19 1:[address] CM met with patient to obtain information for the dc plan. Patient signed [facility] for [facility], [facility], and Home instead, and was placed in chart. DCP- Discharge Planning Updated by [email or web address]: Lachelle Martinsmillicent on 04/28/19 1:[address] Patient Name: RUPERT SAAB Encounter No: [id number] : 1975 Primary Insurance: [place] Anticipated DC Date: Planned Disposition: External Planned Provider: : CM met with patient to obtain information for the dc plan. CM educated patient on the CM role and verbal consent given by patient to speak with patient uncle (Rolly Meléndez @[phone]) to clarify patient needs. Patient lives at home alone, but has family that lives nearby in the same apartment building. At discharge Rolly states the patient will return home with the help of family. CM spoke with the patient and he states he wants to return home. Both parties are in agreement of needing additional assistance. Patient signed [facility] for [facility], and Home instead. plans to return home and feels this is a safe discharge. CM will continue to follow and will assist as needed with dc plans/needs. DCP follow-up note: Patient and family in agreement with discharge plan. No changes to plan. Case management will follow and assist as needed. Lachelle Martinsmillicent DCP- Discharge Planning Updated by [email or web address]: Yola Ramirez on 04/14/19 7:[address] Patient Name: RUPERT SAAB Admission Status: ER Accout number: [id number] Admission Date: 04-13-2019 : 1975 Admission Diagnosis: Attending: JATIN Current LOS: 1 Anticipated DC Date: Planned Disposition: Primary Insurance: [place] Discharge Planning Comments: CM met with patient's uncle at bedside after explaining CM role and obtaining verbal consent. Patient is currently on BiPap and not responding well. Patient lives at home alone where he is independent with his care and plans to return there upon discharge. CM discussed availability / needs of home health and medical equipment. Unknown discharge needs at this time. CM will continue to follow and assist as needed with discharge planning / needs. Emergency Medical Technician: Yola Ramirez DCPIA - Discharge Planning Initial Assessment Updated by [email or web address]: Yola Ramirez on 04/14/19 8:14 pm * Is the patient Alert and Oriented? Yes * How many steps to enter\exit or inside your home? 1-2 * PCP Joshua * Pharmacy [facility] * Preadmission Environment Home Alone * ADLs Independent * Equipment None * Verbal permission to speak to the caregivers and representatives has been obtained from the patient. N/A * Community resources currently utilized None * Additional services required to return to the preadmission environment? No * Can the patient safely return to the preadmission environment? Yes * Has this patient been hospitalized within the prior 30 days at any hospital? No Coverage Notice Reviewer: [id number] Allison Severino Notice Issued Date-Time: 04/28/2019 11:20 Notice Type: Patient Choice Letter Notice Delivered To: Patient Relationship to Patient: Wood Finisher Name: Delivery Method: HAND - Hand Delivered Kriss Days: Prior Verbal Notification: Recipient Understood Notice: Yes Recipient Signature: Yes Med Rec Note Co-signed by Attending: Coverage Notice Comment: [facility] for [facility], and home instead Last DP export: 04/29/19 11:56 a Patient Name: RUPERT SAAB Page [id number] at 1531 All edits/amendments must be made on the electronic document DICTATION DATE: 04/29/19 1531 SHOTBLASTER: SUKHWINDER 04/29/19 1531 RPT#: [id number] DC DATE:04/29/19 STATUS: DIS IN [facility] [address] [place] [address] END OF REPORT
--- NOTE | 2019-04-29 17:03 | MORECARE ---
CASE MANAGEMENT DISCHARGE SUMMARY PATIENT: RUPERT SAAB UNIT: [id number] ADM DATE: 04/13/19 AGE: 43 : [birth year] SEX: M ROOM/BED: D.2212 AUTHOR: CASSIE,DOC PHYSICIAN: REFERRING PHYSICIAN: ALEM SUMMERS MD DATE OF SERVICE: 04/29/19 Discharge Plan Patient Name: RUPERT SAAB Facility: [facility]:[place] : 1975 Planned Disposition: Home with Home Health Anticipated Discharge Date: Discharge Date: 04/29/2019 Expected LOS: 0 Initial Reviewer: [email or web address] Initial Review Date: 04/14/2019 Generated: 04/29/19 6:03 pm Comments DCP- Discharge Planning Updated by [email or web address]: Nina Rivas on 04/29/19 2:[address] [facility] HAS DELIVERED THE O2 AT THE BEDSIDE, HOME HEALTH WITH [facility] WILL START TOMORROW I SPOKE WITH RANGEL AT [facility]. DCP- Discharge Planning Updated by [email or web address]: Nina Rivas on 04/29/19 11:[address] I HAVE SPOKE [facility] TO CONFIRM THAT HE WAS A CURRENT PATIENT THERE. THEY WERE GOING TO MAKE SHRE THAT DR LUZ VENTURA WAS ASSIGNED TO HIM SO HE COULD HAVE HOME HEALTH. I RE-DID HIS WALK TEST TO CHECK HIS O2 NEEDS AND HE DROPPED TO 87% WHEN AMBULATED. I ORDERED 2 L O2 THROUGH [facility] AND THEY WILL DELIVERED PORTABLE TO THE HOSPITAL AND O2 TO HIS HOME. I SPOKE WITH ELEAZAR. I ALSO CALLED HIS UNCLE, ERNESTO TO SPEAK TO HIM ABOUT DISCHARGE. I EXPLAINED TO HIM THAT THE MD WANTED SOMEONE TO STAY WITH HIM TILL THEY THOUGHT HE WAS SAFE. HIS BROTHER AND SISTER IN LAW LIVE RIGHT NEXT DOOR. HIS UNCLE SAID THEY WOULD BE CHECKING ON HIM AND HAS GOOD SUPPORT SYSTEM. WE HAVE SENT A REFERRAL TO [facility] BE HIS D[facility]. ERNESTO WILL BE HIS HAND DRAWER IN HOME TODAY. CM WILL CONTINUE TO FOLLOW AND ASSIT WITH DC PLANNING NEEDS DCP- Discharge Planning Updated by [email or web address]: Lachelle Severino on 04/28/19 1:[address] CM met with patient to obtain information for the dc plan. Patient signed [facility] for [facility], [facility], and Home instead, and was placed in chart. DCP- Discharge Planning Updated by [email or web address]: Lachelle Martinsmillicent on 04/28/19 1:[address] Patient Name: RUPERT SAAB Encounter No: [id number] : 1975 Primary Insurance: [place] Anticipated DC Date: Planned Disposition: External Planned Provider: : CM met with patient to obtain information for the dc plan. CM educated patient on the CM role and verbal consent given by patient to speak with patient uncle (Rolly Meléndez @[phone]) to clarify patient needs. Patient lives at home alone, but has family that lives nearby in the same apartment building. At discharge Rolly states the patient will return home with the help of family. CM spoke with the patient and he states he wants to return home. Both parties are in agreement of needing additional assistance. Patient signed [facility] for [facility], and [facility] instead. plans to return home and feels this is a safe discharge. CM will continue to follow and will assist as needed with dc plans/needs. DCP follow-up note: Patient and family in agreement with discharge plan. No changes to plan. Case management will follow and assist as needed. Lachelle Severino DCP- Discharge Planning Updated by [email or web address]: Yola Ramirez on 04/14/19 7:[address] Patient Name: RUPERT SAAB Admission Status: ER Accout number: [id number] Admission Date: 04-13-2019 : 1975 Admission Diagnosis: Attending: JATIN Current LOS: 1 Anticipated DC Date: Planned Disposition: Primary Insurance: [place] Discharge Planning Comments: CM met with patient's uncle at bedside after explaining CM role and obtaining verbal consent. Patient is currently on BiPap and not responding well. Patient lives at home alone where he is independent with his care and plans to return there upon discharge. CM discussed availability / needs of home health and medical equipment. Unknown discharge needs at this time. CM will continue to follow and assist as needed with discharge planning / needs. Calender Worker Helper: Yola Ramirez DCPIA - Discharge Planning Initial Assessment Updated by [email or web address]: Yola Ramirez on 04/14/19 8:14 pm * Is the patient Alert and Oriented? Yes * How many steps to enter\exit or inside your home? 1-2 * PCP Joshua * Pharmacy [facility] * Preadmission Environment Home Alone * ADLs Independent * Equipment None * Verbal permission to speak to the caregivers and representatives has been obtained from the patient. N/A * Community resources currently utilized None * Additional services required to return to the preadmission environment? No * Can the patient safely return to the preadmission environment? Yes * Has this patient been hospitalized within the prior 30 days at any hospital? No Coverage Notice Reviewer: [id number] Allison Severino Notice Issued Date-Time: 04/28/2019 11:20 Notice Type: Patient Choice Letter Notice Delivered To: Patient Relationship to Patient: Cabin Service Agent Name: Delivery Method: HAND - Hand Delivered Kriss Days: Prior Verbal Notification: Recipient Understood Notice: Yes Recipient Signature: Yes Med Rec Note Co-signed by Attending: Coverage Notice Comment: [facility] for [facility], [facility], and home instead Last DP export: 04/29/19 2:31 p Patient Name: RUPERT SAAB Page [id number] at 1703 All edits/amendments must be made on the electronic document DICTATION DATE: 04/29/191702 DESKTOP SUPPORT ENGINEER: SUKHWINDER 04/29/191702 RPT#: [id number] DC DATE:04/29/19 STATUS: DIS IN [facility] [address] [place] [address] END OF REPORT
--- NOTE | 2019-04-29 20:17 | NUR ---
OT NOTE: AM: PT COMPLETED UB HYGIENE TASKS WITH SBA. PT COMPLETED STANDING BALANCE AT SINK LEVEL. PM: PT COMPLETED DYNAMIC STANDING ACTIVITIES WITH SBA/MOD I. [phone]; [phone] THANK YOU, PRIYANKA GARCIA
--- NOTE | 2019-05-03 11:24 | EC ---
PATIENT:RUPERT SAAB DATE OF SERVICE: 04/13/19 SEX: M MEDICAL RECORD: [id number] DATE OF : [birth year] LOCATION:[facility] AGE OF PATIENT: 43 ADMISSION DATE: 04/13/19 REFERRING PHYSICIAN: INTERPRETING PHYSICIAN: ABDI ANDRES MD ECHOCARDIOGRAM REPORT ECHO CHARGES 4 ECHO COMPLETE Date: 04/15/19 CLINICAL DIAGNOSIS: TACHYCARDIA ECHOCARDIOGRAPHIC MEASUREMENTS (adult normal given) AC root (d.<3.7cm) 4.9 cm LV Septum d (<1.2 cm> 1.2 cm Valve Excursion 1.8 cm LV Septum (systole) 1.4 cm Left Atria (s.<4.0cm> 3.3 cm LVPW d(<1.2cm) 1.1 cm RV (d.<2.3cm) 2.9 cm LVPW (sytole) 1.2 cm LV diastole(<5.6CM) 4.5 cm MV E-F(>70mm/sec) cm LV systole 3.5 cm LVOT Diameter 2.4 cm MV exc.(>10mm) cm Est.ejection fraction (50-75%) % DOPPLER: LVIT cm/sec A 88 cm/sec E 71 cm/sec LA cm/sec RVSP 19.1 mmHg LVOT 95 cm/sec AOP1/2T m/s Asc. Ao 125 cm/sec RVOT 71 cm/sec RA cm/sec PA 90 cm/sec AV Gradient Peak 6.2 mmHg AV Mean 3.6 mmHg AV Area 3.4 cm MV Gradient Peak 5.2 mmHg MV Mean 2.9 mmHg MV Area cm COMMENTS: Commercial Technician: Yudelka [facility] Mica Miner: 1 Dr. Andres TAPE# PACS Pericardial Effusion N DATE OF SERVICE: ECHOCARDIOGRAM FINDINGS: 1. Left ventricular chamber size is within normal limits. Left ventricular systolic function is normal. Overall ejection fraction estimated at 60%. 2. Left atrium is within normal limits. Right atrium and right ventricle chamber sizes are mildly dilated. 3. Valvular structures have normal structure and motion. ECHOCARDIOGRAM REPORT [id number] RUPERT SAAB 4. Doppler interrogation reveals only trace tricuspid regurgitation, no other valvular insufficiency or stenosis. 5. No evidence of pericardial effusion or left ventricular thrombus and pulmonary systolic pressure is normal estimated at 19 mmHg. TRANSINT:[id number] Voice Confirmation ID: [id number] DOCUMENT ID: [id number] ABDI ANDRES MD at 1124 CC: [id number] DICTATION DATE: 04/15/19 1432 EQUITIES ANALYST: 04/15/19 2241 DIS IN 04/29/19 [place] [id number] [place] [id number]
== END 2019-04-29 15:02 | disposition home health service (06) | DRG 207 ==
LOC: D.ER 08:44 → D.ICU 12:52 → D.MS 04-21 16:33
PROVIDERS: Family Medicine; Internal Medicine Nephrology; Internal Medicine Pulmonary Disease; ADMIT Family Medicine; ATTEND Family Medicine
PROC: 5A1955Z Respiratory Ventilation, Greater than 96 Consecutive Hours (ICD-10-PCS; principal; 2019-04-14)
PROC: 0BH17EZ Insertion of Endotracheal Airway into Trachea, Via Natural or Artificial Opening (ICD-10-PCS; 2019-04-14)
PROC: 05H533Z Insertion of Infusion Device into Right Subclavian Vein, Percutaneous Approach (ICD-10-PCS; 2019-04-16)
DX: J96.00 Acute respiratory failure, unspecified whether with hypoxia or hypercapnia (principal); G93.41 Metabolic encephalopathy; E11.10 Type 2 diabetes mellitus with ketoacidosis without coma; E87.2 Acidosis; N17.9 Acute kidney failure, unspecified; E87.0 Hyperosmolality and hypernatremia; N30.00 Acute cystitis without hematuria; J96.01 Acute respiratory failure with hypoxia; R00.0 Tachycardia, unspecified; D75.1 Secondary polycythemia; E86.9 Volume depletion, unspecified; F20.9 Schizophrenia, unspecified; F31.9 Bipolar disorder, unspecified; E86.0 Dehydration; I48.91 Unspecified atrial fibrillation; R53.81 Other malaise